=== PATIENT | female | born 1930 | race Caucasian/White ===

== ENCOUNTER 2018-11-16 19:21 | Inpatient (IN) ==
[2018-11-16 20:10] LABS: Basophils # (auto) 0.02 K/uL (0-0.2); Basophils % (auto) 0.3 %; Eosinophils # (auto) 0.06 K/uL (0-0.5); Eosinophils % (auto) 0.9 %; Hematocrit (blood only) 44.9 % (37-47); Hemoglobin 15.4 g/dL (12.0-16.0); Immature Granulocytes # (auto) 0.04 K/uL (0.00-0.02); Immature Granulocytes % (auto) 0.6 %; Lymphocytes # (auto) 0.93 K/uL (1.2-3.4); Lymphocytes % (auto) 14.6 %; Mean Corpuscular Hgb Conc 34.3 g/dL (32-36); Mean Corpuscular Volume 90.7 fL (80-100); Mean Platelet Volume 10.7 fL (7.4-10.4); Monocytes # (auto) 0.59 K/uL (0.11-0.59); Monocytes % (auto) 9.3 %; Neutrophils # (auto) 4.73 K/uL (1.4-6.5); Neutrophils % (auto) 74.3 %; Platelet Count 207 K/uL (130-400); RDW Coefficient of Variation 13.7 % (11.5-14.5); RDW Standard Deviation 45.1 fL (36.4-46.3); Red Blood Count 4.95 M/uL (4.2-5.4); White Blood Count 6.37 K/uL (4.8-10.8)
[2018-11-16] MEDS ORDERED: ACETAMINOPHEN 65 ML IV ONE ×2 (20:17→20:34)
[2018-11-16 20:23] LABS: INR 2.6 (0.9-1.1); Partial Thromboplastin Ratio 1.4; Partial Thromboplastin Time 38.5 Seconds (21.0-31.0); Prothrombin Time 24.7 Seconds (9.0-12.0)
[2018-11-16 20:30] LABS: Alanine Aminotransferase 27 U/L (12-78); Albumin Level 3.7 gm/dl (3.4-5.0); Aspartate Aminotransferase 22 U/L (15-37); BUN Creatinine Ratio 38.5 (10-20); Blood Urea Nitrogen 25 mg/dl (7-18); Calcium 9.2 mg/dl (8.5-10.1); Carbon Dioxide 27 mmol/L (21-32); Chloride 104 mmol/L (98-107); Est GFR (African American) 92.1; Est GFR (Non-African American) 79.4; Glucose 177 mg/dl (70-99); Potassium 4.2 mmol/L (3.5-5.1); Sodium 139 mmol/L (136-145)
[2018-11-16 20:35] LABS: Albumin Globulin Ratio 1.1 (0.9-2); Alkaline Phosphatase 60 U/L (45-117); Globulin 3.3 gm/dl (2.5-4.0); Troponin I 0.027 ng/ml (0-0.045)
--- NOTE | 2018-11-16 20:43 | Emergency Department Note ---
Entered by Vidya Augustin acting as a scribe for Matthew Ley MD History of Present Illness General Chief complaint: Fall Stated complaint: FALL, LEFT RIB PAIN Time Seen by Provider: 11/16/18 19:30 Source: patient and family Limitations: other (demensia) History of Present Illness Provider complaint: Fall Onset (ago): hour(s) (1.5) Location: head and abdomen (rib cage) Radiation: non-radiation Severity: moderate Pain Consistency: + constant Maximum Pain Intensity: 4 Current Pain Intensity: 4 Relieved By: + none Exacerbated By: + none Associated symptoms: + denies other symptoms (limited secondary to baseline demensia) and + other (+demensia, ); no headaches and no syncope Treatments prior to arrival: none The patient is a 88 year old female who presents to the Emergency Department after a fall on her staircase. Per the family, the patient recently moved into a new senior care where she fell on the first step of the stairs. The patient did not pass out during the fall but states that her ribs and back hurt. The patient denies having a headache. The patient has broken her back in the past and also has a history of dementia. Per the family, the patient's dementia has worsened since moving into the new senior care. The patient was started on Aricept about five weeks ago and she has showed a small amount of improvement since. The patient rates her pain as a 4 out of 10 in severity. The patient is a Coumadin and has history of high blood pressure, atrial fibrillation, a stent placement, and irritable bowels. Per the family, the patient also recently had a bladder infection. Home Medications Home Medications Medication Instructions Recorded Confirmed Type acetaminophen 325 mg PO Q6H PRN 11/16/18 11/16/18 History atorvastatin 10 mg PO DAILY 11/16/18 11/16/18 History calcium carbonate-vitamin D3 1 cap PO DAILY 11/16/18 11/16/18 History [Calcium 600 + D(3)] cefdinir 300 mg PO Q12H 11/16/18 11/16/18 History cholecalciferol (vitamin D3) 1,000 unit PO DAILY 11/16/18 11/16/18 History [Vitamin D3] cyanocobalamin (vitamin B-12) 500 mcg PO DAILY 11/16/18 11/16/18 History [Vitamin B-12] donepezil 5 mg PO DAILY 11/16/18 11/16/18 History glimepiride 1 mg PO DAILY 11/16/18 11/16/18 History levothyroxine 75 mcg PO DAILY 11/16/18 11/16/18 History melatonin 1 mg PO HS PRN 11/16/18 11/16/18 History peg 400-propylene glycol [Systane 2 drp OPHTHALMIC (EYE) BID PRN 11/16/18 11/16/18 History Ultra] polyethylene glycol 3350 17 g PO DIRECTED 11/16/18 11/16/18 History sotalol 80 mg PO DAILY 11/16/18 11/16/18 History warfarin 2 mg PO DIRECTED 11/16/18 11/16/18 History warfarin 4 mg PO DIRECTED 11/16/18 11/16/18 History Allergies Allergy/AdvReac Type Severity Reaction Status Date / Time bisacodyl Allergy Severe difficulty Verified 11/16/18 19:44 breathing, gi trazodone Allergy Severe anaphylaxis Verified 11/16/18 19:44 FREDI Inhibitors Allergy Unknown Unknown Verified 11/16/18 19:44 lisinopril Allergy Unknown Unknown Verified 11/16/18 19:44 nefazodone Allergy Unknown Unknown Verified 11/16/18 19:44 ranolazine Allergy Unknown unknown Verified 11/16/18 19:44 Sulfa (Sulfonamide Allergy Unknown stiff Verified 11/16/18 19:44 Antibiotics) neck/headache yellow dye Allergy Unknown unknown Verified 11/16/18 19:44 Past Med/Surg History Medical History Chest pain (Acute 05/31/14) History of - hypertension (Chronic 01/19/13) Rapid atrial fibrillation (Acute 05/31/14) Social History Feels Safe at Home: Yes Smoking Status: Never smoker Review of Systems See HPI for pertinent positives & negatives. and A total of 10 systems reviewed and were otherwise negative Physical Exam Vital Signs Vital Signs - 24 hr 11/16/18 19:24 11/16/18 21:04 11/16/18 22:41 Temperature 36.8 C Temperature Source Oral Sepsis Recent Fever Within 48 Hours No Sepsis Action Taken by Nursing No Action Required Pulse Rate 68 70 Pulse Rate [Right Finger] 64 70 Pulse Rhythm Regular Pulse Rhythm [Right Finger] Regular Regular Pulse Strength [Right Finger] Normal Normal Respiratory Rate 18 18 20 Respiratory Effort / Characteristics Non-Labored Non-Labored Spontaneous Non-Labored Spontaneous Respiratory Depth Normal Normal Normal Respiratory Pattern Regular Regular Blood Pressure 209/88 H Blood Pressure [Right Arm] 214/79 H 188/84 H Blood Pressure Mean 128 Blood Pressure Mean [Right Arm] 124 118 Blood Pressure Position [Right Arm] Lying Lying Pulse Oximetry 96 96 97 Oxygen Delivery Method Room Air Room Air Room Air 11/16/18 23:59 Temperature Temperature Source Sepsis Recent Fever Within 48 Hours Sepsis Action Taken by Nursing Pulse Rate 72 Pulse Rate [Right Finger] Pulse Rhythm Pulse Rhythm [Right Finger] Pulse Strength [Right Finger] Respiratory Rate 18 Respiratory Effort / Characteristics Respiratory Depth Respiratory Pattern Blood Pressure 165/73 H Blood Pressure [Right Arm] Blood Pressure Mean Blood Pressure Mean [Right Arm] Blood Pressure Position [Right Arm] Pulse Oximetry 98 Oxygen Delivery Method Room Air General: Non-ill appearing older female with baseline dementia in no acute distress. HEENT: Normal cephalic atraumatic. Pupils are equal round and reactive to light. Extraocular movements are intact. Oropharynx is pink with moist mucous membranes. No swelling of the mouth lips or tongue. Neck: Supple with a midline trachea. No meningeal signs or stiffness, no JVD or bruits. No Stridor. Chest: Tender palpation of chest. No external signs of trauma or crepatis. Clear to auscultation bilaterally. No wheezes or rhonchi. No increased work of breathing. Heart: regular rate and rhythm. Abdomen:Tender palpation of upper abdomen, nondistended without rebound guarding or rigidity. No external signs of trauma. Extremities: No cyanosis clubbing or edema. No calf tenderness or asymmetry Spine/Back. Non tender to palpation. No CVA tenderness Skin: Good turgor without rashes. Neurologic exam: Cranial nerves two through 12 are intact. Motor and sensation are intact and symmetrical throughout. Course 1932: The patient was seen in room B4B, a physical exam was performed. 2019: I checked up on the patient and decided to give him IV Tylenol. 2030: The patient received a small dose of Toradol. I also spoke with Ramirez Brown, [facility] Hospitalist, about the patient's case and he agreed to accept the patient for further evaluation. 2031: The patient was admitted for further evaluation. Consultations Consultation #1: I also spoke with Ramirez Brown, [facility] Hospitalist, about the patient's case and he agreed to accept the patient for further evaluation. Time: 20:30 Administered Medications Ioversol (Optiray 320 100ml) 94 ml IV ONCE PRN PRN Reason: Interaction Checking Stop: 11/20/18 20:54 Last Admin: 11/16/18 20:55 Dose: 94 ml Documented by: [id number] Lidocaine (Lidoderm 5%) 1 patch TD HS RADHA Stop: 12/16/18 22:04 Last Admin: 11/16/18 23:15 Dose: 1 patch Documented by: [id number] Sotalol HCl (Betapace) 40 mg PO BID RADHA Stop: 12/16/18 23:29 Last Admin: 11/16/18 23:49 Dose: 40 mg Documented by: [id number] Discontinued Medications Hydralazine HCl (Hydralazine Hcl) 5 mg IV NOW ONE Stop: 11/16/18 22:05 Last Admin: 11/16/18 23:32 Dose: Not Given Documented by: [id number] Acetaminophen (Ofirmev) 65 mls @ 200 mls/hr IV NOW ONE Stop: 11/16/18 20:36 Last Admin: 11/16/18 21:22 Dose: Not Given Documented by: [id number] Acetaminophen (Ofirmev) 65 mls @ 200 mls/hr IV NOW ONE Stop: 11/16/18 20:53 Last Infusion: 11/16/18 21:22 Dose: 0 mls/hr Documented by: [id number] Admin: 11/16/18 21:02 Dose: 200 mls/hr Documented by: [id number] Insulin Glargine (Lantus Solostar Pen) 5 units SQ NOW STA Stop: 11/16/18 23:31 Last Admin: 11/16/18 23:49 Dose: 5 units Documented by: [id number] Cosigned by: [id number] Ketorolac Tromethamine (Toradol) 15 mg IV NOW ONE Stop: 11/16/18 21:55 Last Admin: 11/16/18 21:56 Dose: 15 mg Documented by: [id number] Medical Decision Making Differential Diagnosis Differential Diagnosis: Rib fracture, PNX, pulmonary contusion, arrhythmia, anemia Medical Records Attestation: I reviewed the patient's medical records. Home Medications Current Medication List: was personally reviewed by me Laboratory Data Attestation: I reviewed the patient's lab results. Result diagrams: 11/16/18 19:59 11/16/18 19:59 Lab Results 11/16/18 11/16/18 11/16/18 Range/Units 19:59 19:59 19:59 WBC 6.37 (4.8-10.8) K/uL RBC 4.95 (4.2-5.4) M/uL Hgb 15.4 (12.0-16.0) g/dL Hct 44.9 (37-47) % MCV 90.7 (80-100) fL MCH 31.1 (25-34) pg MCHC 34.3 (32-36) g/dL RDW Std Deviation 45.1 (36.4-46.3) fL RDW Coeff of Neelima 13.7 (11.5-14.5) % Plt Count 207 (130-400) K/uL MPV 10.7 H (7.4-10.4) fL Immature Gran % (Auto) 0.6 % Neut % (Auto) 74.3 % Lymph % (Auto) 14.6 % Whitley % (Auto) 9.3 % Eos % (Auto) 0.9 % Baso % (Auto) 0.3 % Immature Gran # (Auto) 0.04 H (0.00-0.02) K/uL Neut # (Auto) 4.73 (1.4-6.5) K/uL Lymph # (Auto) 0.93 L (1.2-3.4) K/uL Whitley # (Auto) 0.59 (0.11-0.59) K/uL Eos # (Auto) 0.06 (0-0.5) K/uL Baso # (Auto) 0.02 (0-0.2) K/uL PT 24.7 H (9.0-12.0) Seconds INR 2.6 H (0.9-1.1) APTT 38.5 H (21.0-31.0) Seconds PTT Ratio 1.4 Sodium 139 (136-145) mmol/L Potassium 4.2 (3.5-5.1) mmol/L Chloride 104 (98-107) mmol/L Carbon Dioxide 27 (21-32) mmol/L Anion Gap 8.0 (3-11) BUN 25 H (7-18) mg/dl Creatinine 0.66 (0.6-1.2) mg/dl Est Cr Clr Drug Dosing Not Reportable Est GFR ( Amer) 92.1 Est GFR (Non-Af Amer) 79.4 BUN/Creatinine Ratio 38.5 H (10-20) Glucose 177 H (70-99) mg/dl Calcium 9.2 (8.5-10.1) mg/dl Total Bilirubin 1.0 (0.2-1) mg/dl AST 22 (15-37) U/L ALT 27 (12-78) U/L Alkaline Phosphatase 60 (45-117) U/L Troponin I 0.027 (0-0.045) ng/ml Total Protein 7.0 (6.4-8.2) gm/dl Albumin 3.7 (3.4-5.0) gm/dl Globulin 3.3 (2.5-4.0) gm/dl Albumin/Globulin Ratio 1.1 (0.9-2) Lipase 89 (73-393) U/L Imaging Data Attestation: I personally reviewed and interpreted this imaging study as follows: Radiologist's Impression: Radiology results as states below per my review and the radiologist's interpretation: CHEST CT WITH CONTRAST; CT ABDOMEN/PELVIS WITH IV contrast only CT DOSE: 640.17 mGy.cm HISTORY: Left-sided chest and abdominal trauma status post fall eval for trauma. Fall left sided pain TECHNIQUE: Multiaxial CT images of the chest, abdomen and pelvis were performed following the intravenous administration of contrast. A dose lowering technique was utilized adhering to the principles of ALARA. COMPARISON: Chest radiograph of same day. FINDINGS: CT CHEST: Cardiomegaly with extensive coronary arterial calcifications. No pericardial effusion. Fusiform dilation of the ascending thoracic aorta, 4.0 x 4.0 cm without dissection. Moderate mixed plaque formation with patency of the imaged great vessels. Main pulmonary artery is dilated, 3.1 cm transversely. No filling defects within the pulmonary arterial tree. No dominant thyroid nodule. No adenopathy by size criteria. Biopsy clips noted about the breasts. No pneumothorax or pleural effusion. Mild dependent subsegmental bibasilar atelectasis. No focal airspace consolidation typical for pneumonia or evidence of overt pulmonary edema. No suspicious pulmonary nodules or masses. Calcified granuloma of the superior segment right lower lobe. 4 mm solid nodule of the right upper lobe, image 80 series 6 is noted. Central airways appear to be patent. Soft tissues are within normal limits. Degenerative changes of the shoulders and spine. Acute mildly displaced anterolateral left third rib fracture with additional acute nondisplaced anterior left fourth and fifth rib fractures. Remote appearing 20% anterior endplate compression deformity at T7. CT ABDOMEN/PELVIS: No pneumatosis or pneumoperitoneum. Cholelithiasis with a large 2.[address] evidence of acute cholecystitis or choledocholithiasis. There is a mild degree of nonspecific biliary ductal dilation noted within the catarino phery of segment VIII, image 86 series 7. No associated capsular retraction or hepatic mass identified. Pancreas, spleen and adrenal glands appear unremarkable. Patency of the hepatic and portal veins. Kidneys are unremarkable with suggestion of bilateral renal cysts, most of which appear to be subc entimeter. Urinary bladder is unremarkable. Uterus appears to be surgically absent. Extensive calcification of the aorta without aneurysm. No adenopathy by CT size criteria. Small hiatal hernia. Moderate to extensive formed stool throughout the colon. Multiple stool-filled loops of small bowel are also noted. No bowel obstruction or bowel wall thickening identified. Terminal ileum is unremarkable. Appendix is not definitively seen. No free fluid. Soft tissues appear unremarkable. Demineralized appearance of the bones. Degenerative changes of the hips, pelvis and spine. Grade 1 anterolisthesis L4 on L5, likely degenerative. Superior endplate compression deformity of the L2 vertebral body is noted of approximately 20%. Additionally, there is approximately 30% anterior superior endplate compression deformity of L1 without retropulsion. Prior laminectomy changes at L3-S1. IMPRESSION: 1. Acute comminuted mildly displaced fracture of the anterolateral left third rib with additional subtle acute nondisplaced fractures of the anterolateral left fourth and fifth ribs. 2. Superior endplate compression deformities at the L1 and L2 vertebral bodies without retropulsion are age-indeterminate without comparison. Correlate with point tenderness to exclude acute injury. 3. No pneumothorax, pneumoperitoneum or evidence of acute solid organ injury. 4. Cholelithiasis without CT evidence of acute cholecystitis or choledocholithiasis. There is however mild nonspecific biliary ductal dilation noted within segment VIII of the liver. 5. Constipation. 6. Additional findings as above. Electronically signed by: Vin Murphy M.D. 11/16/2018 9:[address] WITH CONTRAST; CT ABDOMEN/PELVIS WITH IV contrast only CT DOSE: 640.17 mGy.cm HISTORY: Left-sided chest and abdominal trauma status post fall eval for trauma. Fall left sided pain TECHNIQUE: Multiaxial CT images of the chest, abdomen and pelvis were performed following the intravenous administration of contrast. A dose lowering technique was utilized adhering to the principles of ALARA. COMPARISON: Chest radiograph of same day. FINDINGS: CT CHEST: Cardiomegaly with extensive coronary arterial calcifications. No pericardial effusion. Fusiform dilation of the ascending thoracic aorta, 4.0 x 4.0 cm without dissection. Moderate mixed plaque formation with patency of the imaged great vessels. Main pulmonary artery is dilated, 3.1 cm transversely. No filling defects within the pulmonary arterial tree. No dominant thyroid nodule. No adenopathy by size criteria. Biopsy clips noted about the breasts. No pneumothorax or pleural effusion. Mild dependent subsegmental bibasilar atelectasis. No focal airspace consolidation typical for pneumonia or evidence of overt pulmonary edema. No suspicious pulmonary nodules or masses. Calcified granuloma of the superior segment right lower lobe. 4 mm solid nodule of the right upper lobe, image 80 series 6 is noted. Central airways appear to be golden nt. Soft tissues are within normal limits. Degenerative changes of the shoulders and spine. Acute mildly displaced anterolateral left third rib fracture with additional acute nondisplaced anterior left fourth and fifth rib fractures. Remote appearing 20% anterior endplate compression deformity at T7. CT ABDOMEN/PELVIS: No pneumatosis or pneumoperitoneum. Cholelithiasis with a large 2.6 cm gallst one. No CT evidence of acute cholecystitis or choledocholithiasis. There is a mild degree of nonspecific biliary ductal dilation noted within the periphery of segment VIII, image 86 series 7. No associated capsular retraction or hepatic mass identified. Pancreas, spleen and adrenal glands appear unremarkable. Patency of the hepatic and portal veins. Kidneys are unremarkable with suggestion of bilateral renal cysts, most of which appear to be subcentimeter. Urinary bladder is unremarkable. Uterus appears to be surgically absent. Extensive calcification of the aorta without aneurysm. No adenopathy by CT size criteria. Small hiatal hernia. Moderate to extensive formed stool throughout the colon. Multiple stool-filled loops of small bowel are also noted. No bowel obstruction or bowel wall thickening identified. Terminal ileum is unremarkable. Appendix is not definitively seen. No free fluid. Soft tissues appear unremarkable. Demineralized appearance of the bones. Degenerative changes of the hips, pelvis and spine. Grade 1 anterolisthesis L4 on L5, likely degenerative. Superior endplate compression deformity of the L2 vertebral body is noted of approximately 20%. Additionally, there is approximately 30% anterior superior endplate compression deformity of L1 without retropulsion. Prior laminectomy changes at L3-S1. IMPRESSION: 1. Acute comminuted mildly displaced fracture of the anterolateral left third rib with additional subtle acute nondisplaced fractures of the anterolateral left fourth and fifth ribs. 2. Superior endplate compression deformities at the L1 and L2 vertebral bodies without retropulsion are age-indeterminate without comparison. Correlate with point tenderness to exclude acute injury. 3. No pneumothorax, pneumoperitoneum or evidence of acute solid organ injury. 4. Cholelithiasis without CT evidence of acute cholecystitis or choledocholithiasis. There is however mild nonspecific biliary ductal dilation noted within segment VIII of the liver. 5. Constipation. 6. Additional findings as above. Electronically signed by: Vin Murphy M.D. 11/16/2018 9:27 PM Dictated: 11/16/182104 Transcribed: 11/16/182105 ECG Data Attestation: I personally reviewed and interpreted this ECG as follows: Indication: other (fall) Rate (beats per minute): 69 Rhythm: normal sinus Findings: + LAFB and + RBBB; no ST depression, no ST elevation and no acute ischemic change Comparison ECG Date: from (May 14, 2016) Change: no significant change Blood Pressure Blood Pressure Findings: Elevated blood pressure Blood Pressure Disposition: further management by hospitalist [facility] Narrative This patient comes in as described above. She suffered a fall. She is complaining of left anterior/lateral rib pain. She does have dementia so it somewhat difficult to pinpoint she is tender with palpation and movement however. She appears in no distress. She did not hit her head. She has baseline neurologic exam which is unchanged. She is moving all extremities. Her daughter is at the bedside. Because the patient is on Coumadin , I do worry more about traumatic injuries blood work was obtained as well as an EKG which did not show any acute ischemic changes. CAT scan of the chest abdomen and pelvis was also obtained. Her INR is in the mid 2 range. She has no significant right or metabolic abnormalities. CAT scan of her chest shows 3 rib fractures with a comminuted third rib fracture. No pneumothorax or pulmonary co ntusion. she seems to be in a lot of pain while she is here she did receive IV acetaminophen. She also received a small dose of IV Toradol. I do think she needs to be admitted/observe for pain management and also may ultimately need placement as her current living situation. she is in a personal care facility and they really can handle her with dementia. I did consult Dr. Yarbrough and she will be admitted for pain management and clinical social worker evaluation. Impression & Plan Fracture, ribs, Intractable pain, Dementia Discharge Plan Visit Data Chief Complaint: Fall Stated Complaint: FALL, LEFT RIB PAIN ED Provider: Matthew Ley Discharge Problem: Fracture, ribs, Intractable pain, Dementia Patient Disposition: Admitted As Inpatient Discharge Instructions Interventions: ED Discharge Assessment Last Done: 11/16/18 23:59 Forms Stand Alone Forms: My [facility] Prescriptions Prescriptions: No Action acetaminophen 325 mg Tablet 325 mg PO Q6H PRN (Reason: Pain) RF: 0 donepezil 5 mg tablet 5 mg PO DAILY RF: 0 polyethylene glycol 3350 17 gram Powder In Packet 17 g PO DIRECTED RF: 0 atorvastatin 10 mg Tablet 10 mg PO DAILY RF: 0 sotalol 80 mg Tablet 80 mg PO DAILY RF: 0 warfarin 4 mg Tablet 4 mg PO DIRECTED RF: 0 glimepiride 1 mg tablet 1 mg PO DAILY RF: 0 levothyroxine 75 mcg tablet 75 mcg PO DAILY RF: 0 cyanocobalamin (vitamin B-12) [Vitamin B-12] 500 mcg Tablet 500 mcg PO DAILY RF: 0 warfarin 2 mg Tablet 2 mg PO DIRECTED RF: 0 cefdinir 300 mg capsule 300 mg PO Q12H RF: 0 cholecalciferol (vitamin D3) [Vitamin D3] 1,000 unit Capsule 1,000 unit PO DAILY RF: 0 Systane Ultra 0.4-0.3 % Drops 2 drp OPHTHALMIC (EYE) BID PRN (Reason: Dry Eye(S)) RF: 0 melatonin 1 mg Tablet 1 mg PO HS PRN (Reason: Insomnia) RF: 0 Calcium 600 + D(3) 600 mg calcium- 200 unit Capsule 1 cap PO DAILY RF: 0 Referrals Referrals: Blanca Strauss DO [Primary Care Provider] - Discharge Problem: Fracture, ribs Qualifiers: Encounter type: initial encounter Rib fracture type: multiple ribs Fracture type: closed Laterality: unspecified laterality Qualified Code(s): S22.49XA - Multiple fractures of ribs, unspecified side, initial encounter for closed fracture Dementia Qualifiers: Dementia type: unspecified type Dementia behavioral disturbance: without behavioral disturbance Qualified Code(s): F03.90 - Unspecified dementia without behavioral disturbance The scribe's documentation has been prepared under my direction and personally reviewed by me in its entirety. I confirm that the note above accurately reflects all work, treatment, procedures, and medical decision making performed by me.
[2018-11-16] MEDS ORDERED: IOVERSOL 100ml IV PRN (20:55)
--- NOTE | 2018-11-16 21:30 | CT Scan Report ---
CHEST CT WITH CONTRAST; CT ABDOMEN/PELVIS WITH IV contrast only CT DOSE: 640.17 mGy.cm HISTORY: Left-sided chest and abdominal trauma status post fall eval for trauma. Fall left sided christian n TECHNIQUE: Multiaxial CT images of the chest, abdomen and pelvis were performed following the intrave nous administration of contrast. A dose lowering technique was utilized adhering to the principles o f ALARA. COMPARISON: Chest radiograph of same day. FINDINGS: CT CHEST: Cardiomegaly with extensive coronary arterial calcifications. No pericardial effusion. Fusiform dilat ion of the ascending thoracic aorta, 4.0 x 4.0 cm without dissection. Moderate mixed plaque formation with patency of the imaged great vessels. Main pulmonary artery is dilated, 3.1 cm transversely. No filling defects within the pulmonary arterial tree. No dominant thyroid nodule. No adenopathy by size criteria. Biopsy clips noted about the breasts. No pneumothorax or pleural effusion. Mild dependent subsegmental bibasilar atelectasis. No focal airspace consolidation typical for pneumonia or evidence of overt pulmonary edema. No suspicious pulmonary nodules or masses. Calcified granuloma of the supe rior segment right lower lobe. 4 mm solid nodule of the right upper lobe, image 80 series 6 is noted. Central airways appear to be patent. Soft tissues are within normal limits. Degenerative changes of the shoulders and spine. Acute mildly displaced anterolateral left third rib fracture with additional acute nondisplaced anterior left four th and fifth rib fractures. Remote appearing 20% anterior endplate compression deformity at T7. CT ABDOMEN/PELVIS: No pneumatosis or pneumoperitoneum. Cholelithiasis with a large 2.[address] evidence of a cute cholecystitis or choledocholithiasis. There is a mild degree of nonspecific biliary ductal dilat ion noted within the periphery of segment VIII, image 86 series 7. No associated capsular retraction or hepatic mass identified. Pancreas, spleen and adrenal glands appear unremarkable. Patency of the h epatic and portal veins. Kidneys are unremarkable with suggestion of bilateral renal cysts, most of w hich appear to be subcentimeter. Urinary bladder is unremarkable. Uterus appears to be surgically abs ent. Extensive calcification of the aorta without aneurysm. No adenopathy by CT size criteria. Small hiatal hernia. Moderate to extensive formed stool throughout the colon. Multiple stool-filled l oops of small bowel are also noted. No bowel obstruction or bowel wall thickening identified. Termina l ileum is unremarkable. Appendix is not definitively seen. No free fluid. Soft tissues appear unrema rkable. Demineralized appearance of the bones. Degenerative changes of the hips, pelvis and spine. Gr jose raul 1 anterolisthesis L4 on L5, likely degenerative. Superior endplate compression deformity of the L 2 vertebral body is noted of approximately 20%. Additionally, there is approximately 30% anterior sup erior endplate compression deformity of L1 without retropulsion. Prior laminectomy changes at L3-S1. IMPRESSION: 1. Acute comminuted mildly displaced fracture of the anterolateral left third rib with additional sub tle acute nondisplaced fractures of the anterolateral left fourth and fifth ribs. 2. Superior endplate compression deformities at the L1 and L2 vertebral bodies without retropulsion a re age-indeterminate without comparison. Correlate with point tenderness to exclude acute injury. 3. No pneumothorax, pneumoperitoneum or evidence of acute solid organ injury. 4. Cholelithiasis without CT evidence of acute cholecystitis or choledocholithiasis. There is however mild nonspecific biliary ductal dilation noted within segment VIII of the liver. 5. Constipation. 6. Additional findings as above. Electronically signed by: Vin Murphy M.D. 11/16/2018 9:27 PM
[2018-11-16] MEDS ORDERED: KETOROLAC TROMETHAMINE 15 MG/ML VIAL IV ONE (21:54)
[2018-11-16] MEDS ORDERED: HydrALAZINE HCL 20 MG/ML VIAL IV ONE (22:04)
[2018-11-16] MEDS ORDERED: LIDOCAINE 5% 1 PATCH TD SCH (22:05)
--- NOTE | 2018-11-16 23:15 | History & Physical Report ---
Date of Service November 16, 2018 Assessment & Plan (1) Fracture, ribs: Secondary to mechanical fall Hypertensive urgency secondary to discomfort chronic diastolic heart failure, patient euvolemic CAD status post stent PAF on Coumadin NSR on Sotalol INR therapeutic DM 2 on oral medications suboptimal control as of recent outpatient hemoglobin A1c of 8.12 October 2018 Complicated UTI ongoing oral cephalosporin Rx hypothyroidism, euthyroid as of recent outpatient TSH breast CIS right status post surgery Dementia OBS Medical telemetry for hypertensive urgency Analgesia, Lidoderm patch trial Continue Sotalol May need additional agent to control blood pressure given episodic bradycardia Basal insulin, ISS BG goal 1 40-1 80, carb count coverage PT OT eval Delirium precautions DVT prophylaxis. Coumadin INR goal between 2 and 3 Full code as per daughter/POA, Ms. Amber Vasques. (Contact #[phone].) History of Present Illness Chief Complaint: Fall, left rib pain Primary Care Provider: Blanca Strauss DO History obtained from patient, family, and records. History limited from patient secondary to dementia. Medical history significant for dementia, chronic diastolic heart failure, CAD status post stent, PAF on Coumadin, hypertension, hyperlipidemia, DM 2 on oral medications, hypothyroidism, breast cancer right status post surgery (radiation and hormonal therapy declined.) Recent confinement May 2014 for rapid A. fib. Patient moved to [facility] personal-residential 5 weeks ago (after being at [facility] for 5 years for patient to have greater mobility as per family). Today patient fell down landing on her left side as she was was going up a short flight of stairs. Patient complained of pleuritic left chest pain. Denies hemoptysis, shortness of breath symptoms. No head trauma. Medical History as above Oral cephalosporin course prescribed by PCP for UTI few days ago. Outpatient urine cultures showed E. coli, strep viridans. 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 Allergies Allergy/AdvReac Type Severity Reaction Status Date / Time bisacodyl Allergy Severe difficulty Verified 11/16/18 19:44 breathing, gi trazodone Allergy Severe anaphylaxis Verified 11/16/18 19:44 FREDI Inhibitors Allergy Unknown Unknown Verified 11/16/18 19:44 lisinopril Allergy Unknown Unknown Verified 11/16/18 19:44 nefazodone Allergy Unknown Unknown Verified 11/16/18 19:44 ranolazine Allergy Unknown unknown Verified 11/16/18 19:44 Sulfa (Sulfonamide Allergy Unknown stiff Verified 11/16/18 19:44 Antibiotics) neck/headache yellow dye Allergy Unknown unknown Verified 11/16/18 19:44 Home Medications Home Medications Medication Instructions Recorded Confirmed Type acetaminophen 325 mg PO Q6H PRN 11/16/18 11/16/18 History atorvastatin 10 mg PO DAILY 11/16/18 11/16/18 History calcium carbonate-vitamin D3 1 cap PO DAILY 11/16/18 11/16/18 History [Calcium 600 + D(3)] cefdinir 300 mg PO Q12H 11/16/18 11/16/18 History cholecalciferol (vitamin D3) 1,000 unit PO DAILY 11/16/18 11/16/18 History [Vitamin D3] cyanocobalamin (vitamin B-12) 500 mcg PO DAILY 11/16/18 11/16/18 History [Vitamin B-12] donepezil 5 mg PO DAILY 11/16/18 11/16/18 History glimepiride 1 mg PO DAILY 11/16/18 11/16/18 History levothyroxine 75 mcg PO DAILY 11/16/18 11/16/18 History melatonin 1 mg PO HS PRN 11/16/18 11/16/18 History peg 400-propylene glycol [Systane 2 drp OPHTHALMIC (EYE) BID PRN 11/16/18 11/16/18 History Ultra] polyethylene glycol 3350 17 g PO DIRECTED 11/16/18 11/16/18 History sotalol 80 mg PO DAILY 11/16/18 11/16/18 History warfarin 2 mg PO DIRECTED 11/16/18 11/16/18 History warfarin 4 mg PO DIRECTED 11/16/18 11/16/18 History Past Med/Surg History Medical History Chest pain (Acute 05/31/14) History of - hypertension (Chronic 01/19/13) Rapid atrial fibrillation (Acute 05/31/14) Social History Preferred Language: Sinhala Communication Ability: Effective Humanities Coordinator Required: No Beliefs That Will Affect Care: None Current Living Situation: Personal Care Facility Feels Safe at Home: Yes Safety Concerns: Feels Safe At This Time Smoking Status: Never smoker Hx Alcohol Use: No Hx Substance Use: No Review of Systems Review of Systems: Could not be reliably obtained Physical Exam Physical Exam: GENERAL: unomfortable, slightly hard of hearing, no respiratory distress SKIN: Normal color, warm HEENT: [place] palpebral conjunctivae, no ptosis, dry buccal mucosa NECK : Supple, no tenderness CHEST : Decreased breath sounds, anterior chest wall tenderness left HEART : RRR, systolic murmur ABDOMEN: Some distention, nontender EXTREMITIES : Minimal LE swelling, no LE tenderness, no other conspicuous deformities noted NEUROLOGIC : Coherent but demented, no facial asymmetry, hard of hearing, gait and stance not assessed Results & Data Vital Signs (Past 12 Hours) Vital Signs Temp Pulse Pulse Resp BP BP Pulse Ox 11/16/18 22:41 70 70 20 188/84 H 97 11/16/18 21:04 64 18 214/79 H 96 11/16/18 19:24 36.8 C 68 18 209/88 H 96 Laboratory Results Laboratory Results WBC 6.37 K/uL (4.8-10.8) 11/16/18 19:59 RBC 4.95 M/uL (4.2-5.4) 11/16/18 19:59 Hgb 15.4 g/dL (12.0-16.0) 11/16/18 19:59 Hct 44.9 % (37-47) 11/16/18 19:59 MCV 90.7 fL (80-100) 11/16/18 19:59 MCH 31.1 pg (25-34) 11/16/18 19:59 MCHC 34.3 g/dL (32-36) 11/16/18 19:59 RDW Std Deviation 45.1 fL (36.4-46.3) 11/16/18 19:59 RDW Coeff of Neelima 13.7 % (11.5-14.5) 11/16/18 19:59 Plt Count 207 K/uL (130-400) 11/16/18 19:59 MPV 10.7 fL (7.4-10.4) H 11/16/18 19:59 Immature Gran % (Auto) 0.6 % 11/16/18 19:59 Neut % (Auto) 74.3 % 11/16/18 19:59 Lymph % (Auto) 14.6 % 11/16/18 19:59 [place] % (Auto) 9.3 % 11/16/18 19:59 Eos % (Auto) 0.9 % 11/16/18 19:59 Baso % (Auto) 0.3 % 11/16/18 19:59 Immature Gran # (Auto) 0.04 K/uL (0.00-0.02) H 11/16/18 19:59 Neut # (Auto) 4.73 K/uL (1.4-6.5) 11/16/18 19:59 Lymph # (Auto) 0.93 K/uL (1.2-3.4) L 11/16/18 19:59 [place] # (Auto) 0.59 K/uL (0.11-0.59) 11/16/18 19:59 Eos # (Auto) 0.06 K/uL (0-0.5) 11/16/18 19:59 Baso # (Auto) 0.02 K/uL (0-0.2) 11/16/18 19:59 PT 24.7 Seconds (9.0-12.0) H 11/16/18 19:59 INR 2.6 (0.9-1.1) H 11/16/18 19:59 APTT 38.5 Seconds (21.0-31.0) H 11/16/18 19:59 PTT Ratio 1.4 11/16/18 19:59 Sodium 139 mmol/L (136-145) 11/16/18 19:59 Potassium 4.2 mmol/L (3.5-5.1) 11/16/18 19:59 Chloride 104 mmol/L (98-107) 11/16/18 19:59 Carbon Dioxide 27 mmol/L (21-32) 11/16/18 19:59 Anion Gap 8.0 (3-11) 11/16/18 19:59 BUN 25 mg/dl (7-18) H 11/16/18 19:59 Creatinine 0.66 mg/dl (0.6-1.2) 11/16/18 19:59 Est Cr Clr Drug Dosing Not Reportable 11/16/18 19:59 Est GFR ( Amer) 92.1 11/16/18 19:59 Est GFR (Non-Af Amer) 79.4 11/16/18 19:59 BUN/Creatinine Ratio 38.5 (10-20) H 11/16/18 19:59 Glucose 177 mg/dl (70-99) H 11/16/18 19:59 Calcium 9.2 mg/dl (8.5-10.1) 11/16/18 19:59 Total Bilirubin 1.0 mg/dl (0.2-1) 11/16/18 19:59 AST 22 U/L (15-37) 11/16/18 19:59 ALT 27 U/L (12-78) 11/16/18 19:59 Alkaline Phosphatase 60 U/L (45-117) 11/16/18 19:59 Troponin I 0.027 ng/ml (0-0.045) 11/16/18 19:59 Total Protein 7.0 gm/dl (6.4-8.2) 11/16/18 19:59 Albumin 3.7 gm/dl (3.4-5.0) 11/16/18 19:59 Globulin 3.3 gm/dl (2.5-4.0) 11/16/18 19:59 Albumin/Globulin Ratio 1.1 (0.9-2) 11/16/18 19:59 Lipase 89 U/L (73-393) 11/16/18 19:[address] chest abdomen pelvis: 1. Acute comminuted mildly displaced fracture of the anterolateral left third rib with additional subtle acute nondisplaced fractures of the anterolateral left fourth and fifth ribs. 2. Superior endplate compression deformities at the L1 and L2 vertebral bodies without retropulsion are age-indeterminate without comparison. Correlate with point tenderness to exclude acute injury. 3. No pneumothorax, pneumoperitoneum or evidence of acute solid organ injury. 4. Cholelithiasis without CT evidence of acute cholecystitis or choledocholithiasis. There is however mild nonspecific biliary ductal dilation noted within segment VIII of the liver. 5. Constipation. EKG as per my interpretation: Rate 70, NSR, LAD, LAFB, R BBB, no ischemia (1) Fracture, ribs Encounter type: initial encounter Fracture type: closed Laterality: unspecified laterality Rib fracture type: multiple ribs Qualified Code(s): S22.49XA - Multiple fractures of ribs, unspecified side, initial encounter for closed fracture
[2018-11-16] MEDS ORDERED: INSULIN GLARGINE SOLOSTAR 100 UNITS/ML 3 ML PEN SQ STA (23:30)
[2018-11-16] MEDS: SOTALOL HCL 80 MG TAB PO SCH (23:49)
[2018-11-17] MEDS ORDERED: GLUCAGON FOR INJ 1 MG VIAL SQ PRN (00:45)
[2018-11-17] MEDS ORDERED: DEXTROSE 50% 50 ML SYRINGE IV PRN (00:45)
[2018-11-17] MEDS ORDERED: SODIUM CHLORIDE 0.9% 1000ML 1,000 ML IV STA (00:45)
[2018-11-17] MEDS ORDERED: CARBOHYDRATES FOR HYPOGLYCEMIA PO PRN (00:45)
[2018-11-17] MEDS ORDERED: GLUCOSE 10 TABS/TUBE PO PRN (00:45)
[2018-11-17] MEDS ORDERED: GLUCOSE 40% GEL 15 GM TUBE PO PRN (00:45)
[2018-11-17] MEDS ORDERED: ACETAMINOPHEN 325 MG TAB PO PRN (00:45)
[2018-11-17] MEDS ORDERED: PROMETHAZINE HCL 12.5 MG in SODIUM CHLORIDE 0.9% 50 ML IV PRN (00:45)
[2018-11-17] MEDS: INSULIN ASPART 100 UNITS/ML 3 ML PEN SC SCH ×5 (01:18→20:17)
[2018-11-17 01:40] LABS: Magnesium 2.3 mg/dl (1.8-2.4)
[2018-11-17] MEDS ORDERED: ARTIFICIAL TEARS OP PRN (01:45)
[2018-11-17] MEDS: MoRPHine SULFATE 2 MG/ML CARP IV PRN ×3 (03:35→13:12)
[2018-11-17] MEDS ORDERED: AMLODIPINE BESYLATE 5 MG TAB PO SCH (04:45)
[2018-11-17] MEDS: TRAMADOL HCL 50 MG TABLET PO PRN ×2 (05:01→10:30)
[2018-11-17] MEDS: LEVOTHYROXINE SODIUM 75 MCG TABLET PO SCH (05:32)
[2018-11-17 06:58] LABS: Basophils # (auto) 0.02 K/uL (0-0.2); Basophils % (auto) 0.3 %; Eosinophils # (auto) 0.13 K/uL (0-0.5); Eosinophils % (auto) 2.2 %; Hematocrit (blood only) 43.2 % (37-47); Hemoglobin 14.7 g/dL (12.0-16.0); Immature Granulocytes # (auto) 0.01 K/uL (0.00-0.02); Immature Granulocytes % (auto) 0.2 %; Lymphocytes # (auto) 0.76 K/uL (1.2-3.4); Lymphocytes % (auto) 13.1 %; Mean Corpuscular Volume 90.8 fL (80-100); Monocytes # (auto) 0.55 K/uL (0.11-0.59); Monocytes % (auto) 9.5 %; Neutrophils # (auto) 4.33 K/uL (1.4-6.5); Neutrophils % (auto) 74.7 %; Platelet Count 180 K/uL (130-400); RDW Coefficient of Variation 13.5 % (11.5-14.5); Red Blood Count 4.76 M/uL (4.2-5.4)
[2018-11-17 07:09] LABS: Prothrombin Time 28.5 Seconds (9.0-12.0)
[2018-11-17 07:27] LABS: BUN Creatinine Ratio 29.5 (10-20); Calcium 8.6 mg/dl (8.5-10.1); Creatinine Clr Calc Pharmacy 58.5 ml/min; Est GFR (African American) 97.2; Est GFR (Non-African American) 83.8
[2018-11-17] MEDS: DONEPEZIL HCL 5 MG TAB PO SCH (07:59)
[2018-11-17] MEDS: CEFDINIR 300 MG CAP PO SCH ×2 (08:04→20:17)
[2018-11-17] MEDS: SOTALOL HCL 80 MG TAB PO SCH ×2 (08:04→20:16)
[2018-11-17] MEDS ORDERED: ATORVASTATIN 10 MG TAB PO SCH (09:00)
[2018-11-17] MEDS ORDERED: CYANOCOBALAMIN 500 MCG TABLET (VITAMIN B-12) PO SCH (09:00)
[2018-11-17] MEDS ORDERED: CHOLECALCIFEROL 1,000 UNITS TAB PO SCH (09:00)
[2018-11-17] MEDS ORDERED: CALCIUM 600MG + VIT D 400 IU TAB PO SCH (09:00)
[2018-11-17] MEDS ORDERED: PERFLUTREN LIPID MICROSPHERE (DEFINITY) IV ONE (09:29)
--- NOTE | 2018-11-17 19:15 | Hospitalist Progress Note ---
Date of Service November 17, 2018 Assessment & Plan (1) Fracture, ribs: Acute comminuted mildly displaced rib fractures on the left third rib with additional subtle nondisplaced fractures of the anterolateral left fourth and fifth ribs. Pain is uncontrolled. Imaging reveals no pneumothorax, pne umoperitoneum or evidence of solid organ injury. Continue supportive care by scheduling acetaminophen. If she is not too drowsy with this will schedule tramadol on top of this for now punctuate episodes of breakthrough pain with tramadol treatment or treatment with IV morphine. Will reduce morphine bolus dose by half to avoid lethargy. (2) E. coli UTI: Possible etiology of her mechanical fall at home. Cefdinir was started on 11/15 for 10-day course. Continue twice daily dosing. Monitor INR closely for fluctuations. (3) Dementia: Underlying dementia and it clear risk for delirium in the hospital with an evidence of infection and severe uncontrolled pain. Continue to reorient, early ambulation recommended and good day night cycles. (4) Encephalopathy: Multifactorial including morphine use, uncontrolled pain in setting of dementia with high risk of delirium. She has an active infection. Continue plan as above. (5) HTN (hypertension): Elevated blood pressure is likely secondary to pain. Amlodipine 2.5 was started on admission, however, blood pressure still uncontrolled. Suspect that with better pain control this will improve. For now will stop amlodipine and give hydralazine 3 times a day with hold parameters. (6) DVT prophylaxis: Warfarin Full code Disposition-pending clinical improvement Priti Murphy DO [facility] hospitalist Subjective 88-year-old female with recent move to personal custodial 5 weeks ago after being at [facility] for 5 years was admitted for mechanical fall on her left side and subsequent multiple rib fractures. On attempt to examine her today she is minimally responsive to questioning although she opens her eyes and mumbles unintelligible words. Within the last hour she received morphine and was altered as a result of this. At baseline she is reported to have dementia. Per nursing staff she had significant distress with any palpation of her left chest wall and in my examination today she is guarding this area. She cannot give a review of systems secondary to lethargy and confusion. Review of Systems 2 Review of Systems: Unobtainable due to cognitive status Physical Exam Physical Exam: CONSTITUTIONAL: WNWD, vitals as above, generally confused, in no acute distress unless left chest is palpated. EYES: normal conjunctivae, no scleral icterus ENT: MMM RESPIRATORY: clear to auscultation bilaterally, limited exam as patient is not cooperating with exam, no crackles, rales or wheezes, normal respiratory effort CARDIOVASCULAR: regular rate and rhythm, S1 and 2 heard without murmurs, gallops or rubs, no JVD, no peripheral edema CHEST: inspection of chest was normal, significant tenderness to palpation of left anterior chest wall. GASTROINTESTINAL: soft, nontender, nondistended MUSCULOSKELETAL: head is normocephalic and atraumatic, strength could not be assessed as patient is unable to follow instructions secondary to confusion. SKIN: warm and dry, no rashes NEUROLOGIC: No facial palsy, she is unable to follow instruction and is confused. PSYCHIATRIC: Eyes are closed and she is lethargic but opens eyes to voice. She localizes to pain. Results & Data Vital Signs (Past 12 Hours) Vital Signs Temp Pulse Pulse Resp BP BP Pulse Ox 11/17/18 19:01 36.8 C 64 16 176/77 H 96 11/17/18 15:35 36.3 C L 65 16 174/79 H 95 11/17/18 14:55 60 11/17/18 13:21 169/82 H 11/17/18 11:36 184/82 H 11/17/18 11:22 68 20 204/84 H 95 11/17/18 08:37 170/73 H Laboratory Results Short CBC 11/16/18 11/17/18 Range/Units 19:59 06:12 WBC 6.37 5.80 (4.8-10.8) K/uL Hgb 15.4 14.7 (12.0-16.0) g/dL Hct 44.9 43.2 (37-47) % Plt Count 207 180 (130-400) K/uL BMP 11/16/18 11/17/18 19:59 06:12 Sodium 139 142 Potassium 4.2 4.0 Chloride 104 108 H Carbon Dioxide 27 29 BUN 25 H 17 Creatinine 0.66 0.56 L Glucose 177 H 130 H Calcium 9.2 8.6 Cardiac Enzymes 11/16/18 Range/Units 19:59 Troponin I 0.027 (0-0.045) ng/ml Liver Function 07/06/19 Range/Units 19:59 Total Bilirubin 1.0 (0.2-1) mg/dl AST 22 (15-37) U/L ALT 27 (12-78) U/L Alkaline Phosphatase 60 (45-117) U/L Albumin 3.7 (3.4-5.0) gm/dl Medications Administered Current Inpatient Medications Acetaminophen (Tylenol) 650 mg PO Q6H PRN PRN Reason: Pain Stop: 12/17/18 00:44 Last Admin: 11/17/18 05:35 Dose: 650 mg Documented by: Amlodipine Besylate (Norvasc) 2.5 mg PO QAM RADHA Stop: 12/17/18 04:44 Last Admin: 11/17/18 05:31 Dose: 2.5 mg Documented by: Artificial Tears (Artificial Tears) 2 drops OP BID PRN PRN Reason: DRY EYESS Stop: 12/17/18 01:44 Atorvastatin Calcium (Lipitor) 10 mg PO DAILY RADHA Stop: 12/17/18 08:59 Last Admin: 11/17/18 07:59 Dose: 10 mg Documented by: Cefdinir (Omnicef Cap) 300 mg PO BID RADHA Stop: 11/27/18 08:59 Last Admin: 11/17/18 08:04 Dose: 300 mg Documented by: Cyanocobalamin (Vitamin B-12) 500 mcg PO DAILY RADHA Stop: 12/17/18 08:59 Last Admin: 11/17/18 07:59 Dose: 500 mcg Documented by: Dextrose (Dextrose 50%) 25 - 50 ml IV UD PRN; Protocol PRN Reason: Hypoglycemia Protocol Stop: 12/17/18 00:44 Donepezil HCl (Aricept) 5 mg PO DAILY RADHA Stop: 12/17/18 08:59 Last Admin: 11/17/18 07:59 Dose: 5 mg Documented by: Glucagon (Glucagen) 1 mg SQ UD PRN; Protocol PRN Reason: Hypoglycemia Protocol Stop: 12/17/18 00:44 Glucose (Glucose 40%) 15 - 30 gm PO UD PRN; Protocol PRN Reason: Hypoglycemia Protocol Stop: 12/17/18 00:44 Glucose (Dex4 Glucose) 4 - 8 tabs PO UD PRN; Protocol PRN Reason: Hypoglycemia Protocol Stop: 12/17/18 00:44 Sodium Chloride (Nss 1000ml) 1,000 mls @ 40 mls/hr IV .Q24H STA Stop: 11/18/18 00:44 Last Admin: 11/17/18 01:17 Dose: 40 mls/hr Documented by: Promethazine HCl 12.5 mg/ (Sodium Chloride) 50.5 mls @ 202 mls/hr IV Q6H PRN PRN Reason: Nausea And Vomiting Stop: 12/17/18 00:44 Insulin Aspart (Novolog Flexpen) 0 units SC ACHS [facility] Stop: 12/17/18 00:59 Last Admin: 11/17/18 16:59 Dose: Not Given Documented by: Insulin Glargine (Lantus Solostar Pen) 5 units SC HS [facility] Stop: 12/17/18 20:59 [facility]othyroxine [facility] ([facility]th[facility]) [facility] Stop: 12/17/18 06:29 Last Admin: 11/17/18 05:32 Dose: 75 mcg Documented by: Lidocaine (Lidoderm 5%) 1 patch TD [facility] Stop: 12/16/18 22:04 Last Admin: 11/16/18 23:15 Dose: 1 patch Documented by: Miscellaneous (Remove Lidoderm Patch) 1 ea N/A QAM [facility] Stop: 12/17/18 09:59 Last Admin: 11/17/18 10:30 Dose: 1 ea Documented by: Miscellaneous (Carbohydrates For Hypoglycemia) 15 - 30 gm PO UD PRN PRN Reason: Hypoglycemia Treatment Stop: 12/17/18 00:44 Morphine Sulfate (Morphine Sulfate) 2 mg IV Q4H PRN PRN Reason: Pain Stop: 12/01/18 00:44 Last Admin: 11/17/18 13:12 Dose: 2 mg Documented by: Multivitamins/Minerals (Caltrate Plus) 1 tab PO DAILY RADHA Stop: 12/17/18 08:59 Last Admin: 11/17/18 07:58 Dose: 1 tab Documented by: Sotalol HCl (Betapace) 40 mg PO BID [facility] Stop: 12/16/18 23:29 Last Admin: 11/17/18 08:04 Dose: Not Given Documented by: Tramadol HCl (Ultram) 25 mg PO Q4H PRN PRN Reason: Pain Stop: 12/17/18 00:44 Last Admin: 11/17/18 10:30 Dose: 25 mg Documented by: Vitamin D (Vitamin D3) 1,000 units PO DAILY RADHA Stop: 12/17/18 08:59 Last Admin: 11/17/18 07:59 Dose: 1,000 units Documented by: (1) Fracture, ribs Encounter type: initial encounter Fracture type: closed Laterality: unspecified laterality Rib fracture type: multiple ribs Qualified Code(s): S22.49XA - Multiple fractures of ribs, unspecified side, initial encounter for c losed fracture (2) Dementia Dementia behavioral disturbance: without behavioral disturbance Dementia type: unspecified type Qualified Code(s): F03.90 - Unspecified dementia without behavioral disturbance
[2018-11-17] MEDS ORDERED: MoRPHine SULFATE 2 MG/ML CARP IV PRN (19:18)
[2018-11-17] MEDS ORDERED: HydrALAZINE 10 MG TAB PO SCH (19:36)
[2018-11-17] MEDS ORDERED: WARFARIN SOD 2.5 MG TAB PO ONE (19:45)
[2018-11-17] MEDS: INSULIN GLARGINE SOLOSTAR 100 UNITS/ML 3 ML PEN SC SCH (20:17)
[2018-11-17] MEDS: ACETAMINOPHEN 1,000 MG/100 ML VIAL IV SCH (21:54)
[2018-11-18] MEDS ORDERED: HydrALAZINE 10 MG TAB PO SCH (05:30)
[2018-11-18] MEDS: ACETAMINOPHEN 1,000 MG/100 ML VIAL IV SCH ×3 (05:31→21:46)
[2018-11-18] MEDS: LEVOTHYROXINE SODIUM 75 MCG TABLET PO SCH (05:32)
[2018-11-18] MEDS: SOTALOL HCL 80 MG TAB PO SCH ×2 (05:35→20:10)
[2018-11-18 07:25] LABS: Hematocrit (blood only) 47.4 % (37-47); Mean Corpuscular Hgb Conc 33.8 g/dL (32-36); Mean Corpuscular Volume 91.2 fL (80-100); Mean Platelet Volume 10.7 fL (7.4-10.4); Platelet Count 188 K/uL (130-400); RDW Coefficient of Variation 13.6 % (11.5-14.5); RDW Standard Deviation 44.9 fL (36.4-46.3); White Blood Count 7.81 K/uL (4.8-10.8)
[2018-11-18 07:34] LABS: Prothrombin Time 28.2 Seconds (9.0-12.0)
[2018-11-18 07:42] LABS: BUN Creatinine Ratio 28.2 (10-20); Calcium 9.4 mg/dl (8.5-10.1); Creatinine Clr Calc Pharmacy 55.6 ml/min; Est GFR (African American) 95.5; Est GFR (Non-African American) 82.4; Potassium 4.1 mmol/L (3.5-5.1)
[2018-11-18] MEDS: DONEPEZIL HCL 5 MG TAB PO SCH (08:24)
[2018-11-18] MEDS: CEFDINIR 300 MG CAP PO SCH ×2 (08:24→20:12)
[2018-11-18] MEDS: INSULIN ASPART 100 UNITS/ML 3 ML PEN SC SCH ×4 (08:33→21:00)
[2018-11-18] MEDS ORDERED: HydrALAZINE HCL 20 MG/ML VIAL IV STA ×2 (08:58→12:38)
[2018-11-18] MEDS: KETOROLAC TROMETHAMINE 15 MG/ML VIAL IV SCH ×2 (10:19→16:08)
--- NOTE | 2018-11-18 12:43 | Hospitalist Progress Note ---
Date of Service November 18, 2018 Assessment & Plan (1) HTN (hypertension): Uncontrolled high blood pressure likely secondary to pain. More aggressive pain control measures including scheduled Tylenol appears to have been somewhat effective. Adding scheduled Toradol for the next 3 days and cont inue to punctuate breakthrough pain with tramadol p.o. With scheduled pain medicines, I am hoping she will improve from a blood pressure standpoint. In the meantime, IV hydralazine is being given to get her blood pressure into a more normal range. After 10 mg of IV hydralazine this morning and 10 mg p.o. given in the last 4 hours, her blood pressure is 183/74. Additional IV hydralazine is being given now. She has an allergy to FREDI inhibitors. We will plan to start low-dose HCTZ today and continue to titrate medications to achieve good blood pressure control while continuing to treat her pain as this will be a 4 to 6-week healing process requiring pain medication. While HCTZ is building up, would continue hydralazine. (2) Fracture, ribs: Acute comminuted mildly displaced rib fractures on the left third rib with additional subtle nondisplaced fractures of the anterolateral left fourth and fifth ribs. Pain is uncontrolled but she appears better than yesterday. Cont scheduled Tylenol 1000mg IV q8, add scheduled Toradol 15mg IV q8h x 3 days, punctuate breakthrough pain with Tramadol, or if severe morphine OK to use. Pt very sensitive to morphine, so would only give 1mg at a time. PT/OT as tolerated. Cont to get OOB to chair qshift and utilize incentive spirometry as tolerated, however, this will be difficult as she is unable to follow instruction at this time. (3) E. coli UTI: Possible etiology of her mechanical fall at home. Cefdinir was started on 11/15 for 10-day course. Continue twice daily dosing. Monitor INR closely for fluctuations. (4) Dementia: Underlying dementia and it clear risk for delirium in the hospital with an evidence of infection and severe uncontrolled pain. Continue to reorient, early ambulation recommended and good day night cycles. (5) Encephalopathy: Multifactorial including morphine use, uncontrolled pain in setting of dementia with high risk of delirium. She has an active infection. May have an element of hypertensive encephalopathy so aggressively trying to control pain and BP as above. (6) DVT prophylaxis: Warfarin Full code Disposition-pending clinical improvement Priti Murphy DO [facility] hospitalist Subjective 88-year-old female with recent UTI on antibiotics who had a mechanical fall at home and fractured multiple ribs. She is more alert today but is delirious and hallucinating. She states that people are trying to kill her. She first states it is her family then she points to the television and it was the people on TV. She is alert and oriented to person only. She does not know where she is or why she is here and she does not know the date. She is reporting pain in her chest but cannot tell me much more beyond this. She denies any other issues but is clearly altered. She has been able to ambulate to the bathroom and back with nursing this morning. She is tolerating some p.o. Review of Systems Review of Systems: Unobtainable due to cognitive status Physical Exam Physical Exam: CONSTITUTIONAL: WNWD, vitals as above, delirious, in no acute distress unless left chest is palpated. EYES: normal conjunctivae, no scleral icterus ENT: MMM RESPIRATORY: clear to auscultation bilaterally, limited exam as patient is not cooperating with exam, no crackles, rales or wheezes, normal respiratory effort CARDIOVASCULAR: regular rate and rhythm, S1 and 2 heard without murmurs, gallops or rubs, no peripheral edema CHEST: inspection of chest was normal, significant tenderness to palpation of left anterior chest wall. GASTROINTESTINAL: soft, generalized tenderness, nondistended MUSCULOSKELETAL: head is normocephalic and atraumatic, strength could not be assessed as patient is unable to follow instructions secondary to confusion, however, she is able to sit up on her own. SKIN: warm and dry NEUROLOGIC: No facial palsy, she is unable to follow instruction and is confused. PSYCHIATRIC: Alert in no acute distress. Delirious. Results & Data Vital Signs (Past 12 Hours) Vital Signs Temp Pulse Pulse Resp BP BP Pulse Ox 11/18/18 11:29 35.9 C L 73 20 171/75 H 95 11/18/18 07:13 36.9 C 56 L 19 206/70 H 92 11/18/18 06:34 57 L 197/81 H 11/18/18 04:16 36.4 C L 65 18 200/73 H 96 11/18/18 01:00 71 Laboratory Results Short CBC 11/18/18 Range/Units 07:02 WBC 7.81 (4.8-10.8) K/uL Hgb 16.0 (12.0-16.0) g/dL Hct 47.4 H (37-47) % Plt Count 188 (130-400) K/uL BMP 11/18/18 07:02 Sodium 139 Potassium 4.1 Chloride 104 Carbon Dioxide 29 BUN 17 Creatinine 0.59 L Glucose 111 H Calcium 9.4 Medications Administered Current Inpatient Medications Artificial Tears (Artificial Tears) 2 drops OP BID PRN PRN Reason: DRY EYESS Stop: 12/17/18 01:44 Atorvastatin Calcium (Lipitor) 10 mg PO DAILY [facility] Stop: 12/17/18 08:59 Last Admin: 11/17/18 07:59 Dose: 10 mg Documented by: Cefdinir (Omnicef Cap) 300 mg PO BID [facility] Stop: 11/27/18 08:59 Last Admin: 11/18/18 08:24 Dose: 300 mg Documented by: Cyanocobalamin (Vitamin B-12) 500 mcg PO DAILY [facility] Stop: 12/17/18 08:59 Last Admin: 11/17/18 07:59 Dose: 500 mcg Documented by: Dextrose (Dextrose 50%) 25 - 50 ml IV UD PRN; Protocol PRN Reason: Hypoglycemia Protocol Stop: 12/17/18 00:44 Donepezil HCl (Aricept) 5 mg PO DAILY [facility] Stop: 12/17/18 08:59 Last Admin: 11/18/18 08:24 Dose: 5 mg Documented by: Glucagon (Glucagen) 1 mg SQ UD PRN; Protocol PRN Reason: Hypoglycemia Protocol Stop: 12/17/18 00:44 Glucose (Glucose 40%) 15 - 30 gm PO UD PRN; Protocol PRN Reason: Hypoglycemia Protocol Stop: 12/17/18 00:44 Glucose (Dex4 Glucose) 4 - 8 tabs PO UD PRN; Protocol PRN Reason: Hypoglycemia Protocol Stop: 12/17/18 00:44 Hydralazine HCl (Apresoline) 10 mg PO TID [facility] Stop: 12/18/18 05:29 Last Admin: 11/18/18 05:35 Dose: 10 mg Documented by: Hydralazine HCl (Hydralazine Hcl) 10 mg IV NOW STA Stop: 11/18/18 12:39 Acetaminophen (Ofirmev) 1,000 mg in 100 mls @ 400 mls/hr IV Q8 [facility] Stop: 12/17/18 21:59 Last Infusion: 11/18/18 05:46 Dose: Infused Documented by: Insulin Aspart (Novolog Flexpen) 0 units SC ACHS [facility] Stop: 12/17/18 00:59 Last Admin: 11/18/18 08:33 Dose: Not Given Documented by: Insulin Glargine (Lantus Solostar Pen) 5 units SC HS [facility] Stop: 12/17/18 20:59 Last Admin: 11/17/18 20:17 Dose: 5 units Documented by: Ketorolac Tromethamine (Toradol) 15 mg IV Q8H [facility] Stop: 11/21/18 08:59 Last Admin: 11/18/18 10:19 Dose: 15 mg Documented by: Levothyroxine Sodium (Synthroid) 75 mcg PO DAILYBB [facility] Stop: 12/17/18 06:29 Last Admin: 11/18/18 05:32 Dose: 75 mcg Documented by: Miscellaneous (Carbohydrates For Hypoglycemia) 15 - 30 gm PO UD PRN PRN Reason: Hypoglycemia Treatment Stop: 12/17/18 00:44 Morphine Sulfate (Morphine Sulfate) 1 mg IV Q4H PRN PRN Reason: Pain Stop: 12/01/18 00:44 Multivitamins/Minerals (Caltrate Plus) 1 tab PO DAILY [facility] Stop: 12/17/18 08:59 Last Admin: 11/17/18 07:58 Dose: 1 tab Documented by: Sotalol HCl (Betapace) 40 mg PO BID [facility] Stop: 12/18/18 05:29 Last Admin: 11/18/18 05:35 Dose: 40 mg Documented by: Tramadol HCl (Ultram) 50 mg PO Q4H PRN PRN Reason: Pain Stop: 12/17/18 00:44 Vitamin D (Vitamin D3) 1,000 units PO DAILY [facility] Stop: 12/17/18 08:59 Last Admin: 11/17/18 07:59 Dose: 1,000 units Documented by: Warfarin Sodium (Coumadin) 2 mg PO MoWeFr@1600 [facility] Stop: 12/18/18 15:59 Warfarin Sodium (Coumadin) 4 mg PO SuTuThSa@1600 [facility] Stop: 12/19/18 15:59 (1) Fracture, ribs Encounter type: initial encounter Fracture type: closed Laterality: unspecified laterality Rib fracture type: multiple ribs Qualified Code(s): S22.49XA - Multiple fractures of ribs, unspecified side, initial encounter for closed fracture (2) Dementia Dementia behavioral disturbance: without behavioral disturbance Dementia type: unspecified type Qualified Code(s): F03.90 - Unspecified dementia without behavioral disturbance
[2018-11-18] MEDS ORDERED: hydroCHLOROthiazide 25 MG TAB PO STA (12:50)
[2018-11-18] MEDS: WARFARIN SOD 2 MG TAB PO SCH (16:08)
[2018-11-18] MEDS: TRAMADOL HCL 50 MG TABLET PO PRN (20:20)
[2018-11-18] MEDS: INSULIN GLARGINE SOLOSTAR 100 UNITS/ML 3 ML PEN SC SCH (21:06)
[2018-11-19] MEDS: ACETAMINOPHEN 1,000 MG/100 ML VIAL IV SCH ×3 (05:28→21:13)
[2018-11-19] MEDS: LEVOTHYROXINE SODIUM 75 MCG TABLET PO SCH (05:35)
[2018-11-19 07:53] LABS: Hematocrit (blood only) 47.2 % (37-47); Hemoglobin 16.4 g/dL (12.0-16.0); Mean Corpuscular Hgb Conc 34.7 g/dL (32-36); Mean Corpuscular Volume 90.4 fL (80-100); Mean Platelet Volume 10.8 fL (7.4-10.4); Platelet Count 199 K/uL (130-400); RDW Coefficient of Variation 13.8 % (11.5-14.5); RDW Standard Deviation 45.4 fL (36.4-46.3); Red Blood Count 5.22 M/uL (4.2-5.4); White Blood Count 7.45 K/uL (4.8-10.8)
[2018-11-19] MEDS: SOTALOL HCL 80 MG TAB PO SCH ×2 (08:00→20:11)
[2018-11-19] MEDS: DONEPEZIL HCL 5 MG TAB PO SCH (08:00)
[2018-11-19] MEDS: CEFDINIR 300 MG CAP PO SCH ×2 (08:01→20:10)
[2018-11-19 08:03] LABS: INR 2.9 (0.9-1.1); Prothrombin Time 27.6 Seconds (9.0-12.0)
[2018-11-19] MEDS: hydroCHLOROthiazide 25 MG TAB PO SCH (08:20)
[2018-11-19] MEDS: INSULIN ASPART 100 UNITS/ML 3 ML PEN SC SCH ×4 (08:22→21:03)
[2018-11-19 08:26] LABS: Calcium 9.3 mg/dl (8.5-10.1); Creatinine Clr Calc Pharmacy 54.6 ml/min; Magnesium 2.2 mg/dl (1.8-2.4); Potassium 3.6 mmol/L (3.5-5.1)
--- NOTE | 2018-11-19 10:41 | Hospitalist Progress Note ---
Date of Service November 19, 2018 Assessment & Plan (1) HTN (hypertension): Uncontrolled high blood pressure likely secondary to pain/agitation. Cont scheduled Tylenol punctuated by Tramadol PRN breakthrough pain. Cont HCTZ, started this admission. Cont PRN hydralazine. (2) Fracture, ribs: Acute comminuted mildly displaced rib fractures on the left third rib with additional subtle nondisplaced fractures of the anterolateral left fourth and fifth ribs. Pain is uncontrolled but she appears better than yesterday. Cont scheduled Tylenol. Pt very sensitive to morphine, so would only give 1mg at a time. PT/OT as tolerated. Cont to get OOB to chair qshift and utilize incentive spirometry as tolerated, however, this will be difficult as she is unable to follow instruction at this time. (3) E. coli UTI: Possible etiology of her mechanical fall at home. Cefdinir was started on 11/15 for 10-day course. Continue twice daily dosing. Monitor INR closely for fluctuations. (4) Dementia: Underlying dementia and it clear risk for delirium in the hospital with an evidence of infection and severe uncontrolled pain. Continue to reorient, early ambulation recommended and good day night cycles. (5) Encephalopathy: Multifactorial including morphine use, uncontrolled pain in setting of dementia with high risk of delirium. She has an active infection. May have an element of hypertensive encephalopathy so aggressively trying to control pain and BP as above. (6) DVT prophylaxis: Warfarin Full code Disposition-pending clinical improvement Priti Murphy DO [facility] hospitalist Subjective ( DEment[place] precludes accurate ROS. She is alert and concerned when I arrived, stating she thought she was going to [place], and paranoid that "they" weren't going to take her because they were trying to be harmful. BP was elevated >200 this am despite hydralazine 10mg PO. Hydralazine 10mg IV was given with good result and she was given her (new this admission), daily HCTZ. An additional dose of IV hyddralazine was needed later in the afternoon when her BP again went up >180 and she was noted to be agitated by nurse. Hydralazine 10 IV was given again with good result. Pain appears to have improved in her chest although this is difficult to appreciate as she has no insight into her disease process. Palpation evokes less response, she is not guarding the area, and she is moving around more freely. Review of Systems Review of Systems: Unobtainable due to mental health condition Physical Exam Physical Exam: CONSTITUTIONAL: WNWD, vitals as above, confused, in no acute distress. EYES: normal conjunctivae, no scleral icterus ENT: MMM RESPIRATORY: clear to auscultation bilaterally, limited exam as patient is not cooperating with exam, no crackles, rales or wheezes, normal respiratory effort CARDIOVASCULAR: regular rate and rhythm, S1 and 2 heard without murmurs, gallops or rubs, no peripheral edema CHEST: inspection of chest was normal, significant tenderness to palpation of left anterior chest wall. GASTROINTESTINAL: soft, generalized tenderness, nondistended MUSCULOSKELETAL: head is normocephalic and atraumatic, strength could not be assessed as patient is unable to follow instructions secondary to confusion, however, she is able to sit up on her own. SKIN: warm and dry NEUROLOGIC: No facial palsy, she is unable to follow instruction and is confused. PSYCHIATRIC: Alert in no acute distress. Delirious. Results & Data Vital Signs (Past 12 Hours) Vital Signs Temp Pulse Pulse Resp BP BP Pulse Ox 11/19/18 07:22 36.4 C L 75 18 235/83 H 95 11/19/18 03:47 57 L 11/18/18 22:53 36.6 C 59 L 19 137/67 95 Laboratory Results Short CBC 11/19/18 Range/Units 07:24 WBC 7.45 (4.8-10.8) K/uL Hgb 16.4 H (12.0-16.0) g/dL Hct 47.2 H (37-47) % Plt Count 199 (130-400) K/uL BMP 11/19/18 07:24 Sodium 139 Potassium 3.6 Chloride 104 Carbon Dioxide 27 BUN 26 H D Creatinine 0.60 Glucose 109 H Calcium 9.3 Medications Administered Current Inpatient Medications Artificial Tears (Artificial Tears) 2 drops OP BID PRN PRN Reason: DRY EYESS Stop: 12/17/18 01:44 Atorvastatin Calcium (Lipitor) 10 mg PO DAILY [facility] Stop: 12/17/18 08:59 Last Admin: 11/17/18 07:59 Dose: 10 mg Documented by: Cefdinir (Omnicef Cap) 300 mg PO BID [facility] Stop: 11/27/18 08:59 Last Admin: 11/19/18 08:01 Dose: 300 mg Documented by: Cyanocobalamin (Vitamin B-12) 500 mcg PO DAILY [facility] Stop: 12/17/18 08:59 Last Admin: 11/17/18 07:59 Dose: 500 mcg Documented by: Dextrose (Dextrose 50%) 25 - 50 ml IV UD PRN; Protocol PRN Reason: Hypoglycemia Protocol Stop: 12/17/18 00:44 Donepezil HCl (Aricept) 5 mg PO DAILY [facility] Stop: 12/17/18 08:59 Last Admin: 11/19/18 08:00 Dose: 5 mg Documented by: Glucagon (Glucagen) 1 mg SQ UD PRN; Protocol PRN Reason: Hypoglycemia Protocol Stop: 12/17/18 00:44 Glucose (Glucose 40%) 15 - 30 gm PO UD PRN; Protocol PRN Reason: Hypoglycemia Protocol Stop: 12/17/18 00:44 Glucose (Dex4 Glucose) 4 - 8 tabs PO UD PRN; Protocol PRN Reason: Hypoglycemia Protocol Stop: 12/17/18 00:44 Hydrochlorothiazide (Hctz) 12.5 mg PO QAM [facility] Stop: 12/19/18 08:59 Last Admin: 11/19/18 08:20 Dose: 12.5 mg Documented by: Acetaminophen (Ofirmev) 1,000 mg in 100 mls @ 400 mls/hr IV Q8 [facility] Stop: 12/17/18 21:59 Last Infusion: 11/19/18 05:51 Dose: Infused Documented by: Insulin Aspart (Novolog Flexpen) 0 units SC ACHS [facility] Stop: 12/17/18 00:59 Last Admin: 11/19/18 08:22 Dose: Not Given Documented by: Insulin Glargine (Lantus Solostar Pen) 5 units SC HS [facility] Stop: 12/17/18 20:59 Last Admin: 11/18/18 21:06 Dose: 5 units Documented by: Levothyroxine Sodium (Synthroid) 75 mcg PO DAILYBB [facility] Stop: 12/17/18 06:29 Last Admin: 11/19/18 05:35 Dose: 75 mcg Documented by: Miscellaneous (Carbohydrates For Hypoglycemia) 15 - 30 gm PO UD PRN PRN Reason: Hypoglycemia Treatment Stop: 12/17/18 00:44 Morphine Sulfate (Morphine Sulfate) 1 mg IV Q4H PRN PRN Reason: Pain Stop: 12/01/18 00:44 Multivitamins/Minerals (Caltrate Plus) 1 tab PO DAILY [facility] Stop: 12/17/18 08:59 Last Admin: 11/17/18 07:58 Dose: 1 tab Documented by: Sotalol HCl (Betapace) 40 mg PO BID [facility] Stop: 12/18/18 05:29 Last Admin: 11/19/18 08:00 Dose: 40 mg Documented by: Tramadol HCl (Ultram) 50 mg PO Q4H PRN PRN Reason: Pain Stop: 12/17/18 00:44 Last Admin: 11/18/18 20:20 Dose: 50 mg Documented by: Vitamin D (Vitamin D3) 1,000 units PO DAILY [facility] Stop: 12/17/18 08:59 Last Admin: 11/17/18 07:59 Dose: 1,000 units Documented by: Warfarin Sodium (Coumadin) 2 mg PO MoWeFr@1600 [facility] Stop: 12/18/18 15:59 Last Admin: 11/18/18 16:08 Dose: 2 mg Documented by: Warfarin Sodium (Coumadin) 4 mg PO SuTuThSa@1600 [facility] Stop: 12/19/18 15:59 (1) Fracture, ribs Encounter type: initial encounter Fracture type: closed Laterality: unspecified laterality Rib fracture type: multiple ribs Qualified Code(s): S22.49XA - Multiple fractures of ribs, unspecified side, initial encounter for closed fracture (2) Dementia Dementia behavioral disturbance: without behavioral disturbance Dementia type: unspecified type Qualified Code(s): F03.90 - Unspecified dementia without behavioral disturbance
[2018-11-19] MEDS ORDERED: HydrALAZINE HCL 20 MG/ML VIAL IV PRN (10:42)
[2018-11-19] MEDS ORDERED: WARFARIN SOD 4 MG TAB PO SCH (16:00)
[2018-11-19] MEDS: TRAMADOL HCL 50 MG TABLET PO PRN ×2 (17:31→23:39)
[2018-11-19] MEDS: INSULIN GLARGINE SOLOSTAR 100 UNITS/ML 3 ML PEN SC SCH (21:13)
[2018-11-20] MEDS: ACETAMINOPHEN 1,000 MG/100 ML VIAL IV SCH ×3 (05:44→22:05)
[2018-11-20] MEDS: LEVOTHYROXINE SODIUM 75 MCG TABLET PO SCH (05:45)
[2018-11-20 06:50] LABS: INR 2.3 (0.9-1.1); Prothrombin Time 21.9 Seconds (9.0-12.0)
[2018-11-20] MEDS: hydroCHLOROthiazide 25 MG TAB PO SCH (08:13)
[2018-11-20] MEDS: CEFDINIR 300 MG CAP PO SCH ×2 (08:13→22:01)
[2018-11-20] MEDS: SOTALOL HCL 80 MG TAB PO SCH ×2 (08:13→22:01)
[2018-11-20] MEDS: DONEPEZIL HCL 5 MG TAB PO SCH (08:13)
[2018-11-20] MEDS: INSULIN ASPART 100 UNITS/ML 3 ML PEN SC SCH ×4 (08:39→21:59)
[2018-11-20] MEDS: WARFARIN SOD 2 MG TAB PO SCH (15:54)
--- NOTE | 2018-11-20 17:09 | Hospitalist Progress Note ---
Date of Service November 20, 2018 Assessment & Plan (1) HTN (hypertension): Uncontrolled high blood pressure likely secondary to pain/agitation. Cont scheduled Tylenol punctuated by Tramadol PRN breakthrough pain. Cont HCTZ, started this admission. Cont PRN hydralazine. We will add amlodipine for better blood pressure control (2) Fracture, ribs: Acute comminuted mildly displaced rib fractures on the left third rib with additional subtle nondisplaced fractures of the anterolateral left fourth and fifth ribs. Pain is controlled Cont scheduled Tylenol. Pt very sensitive to morphine, so would only give 1mg at a time. PT/OT as tolerated. (3) E. coli UTI: Possible etiology of her mechanical fall at home. Cefdinir was started on 11/15 for 10-day course. Continue twice daily dosing. (4) Dementia: Underlying dementia and it clear risk for delirium in the hospital with an evidence of infection and severe uncontrolled pain. Continue to reorient, early ambulation recommended and good day night cycles. (5) Encephalopathy: Multifactorial including morphine use, uncontrolled pain in setting of dementia with high risk of delirium. She has an active infection. May have an element of hypertensive encephalopathy so aggressively trying to control pain and BP as above. (6) DVT prophylaxis: Warfarin Full code Disposition-pending clinical improvement Subjective 11/20 Patient was seen and examined in medical floor Medical history significant for dementia, chronic diastolic heart failure, CAD status post stent, PAF on Coumadin, hypertension, hyperlipidemia, DM 2 on oral medications, hypothyroidism, breast cancer right status post surgery (radiation and hormonal therapy declined. She denies any symptoms today Her blood pressure was noted to be high Review of Systems Review of Systems: All systems reviewed and unremarkable except as noted below Constitutional: + weakness Respiratory: no cough and no dyspnea Cardiovascular: no chest pain Physical Exam Physical Exam: No apparent distress at rest Constitutional: + ill appearing; no acute distress Eyes: PERRL, conjunctivae normal, anicteric sclerae ENMT: external ear and nose normal, oropharynx normal Neck: trachea midline, no thyromegaly Respiratory: normal respiratory effort; no respiratory distress Auscultation: lungs clear to auscultation bilaterally Cardiovascular: Rate/Rhythm: regular rate and regular rhythm Heart Sounds: no murmur Gastrointestinal (Abdomen): Inspection/Auscultation: abdomen normal to inspection and normal bowel sounds Percussion/Palpation: abdomen soft Neurologic: Pleasantly confused Lymphatic: no cervical or axillary lymphadenopathy Results & Data Vital Signs (Past 12 Hours) Vital Signs Temp Pulse Pulse Resp BP BP Pulse Ox 11/20/18 15:09 36.4 C L 59 L 18 177/83 H 96 11/20/18 12:00 36.9 C 66 18 156/77 H 95 11/20/18 07:51 61 11/20/18 06:58 36.7 C 61 20 155/73 H 94 Medications Administered Current Inpatient Medications Amlodipine Besylate (Norvasc) 2.5 mg PO NOW ONE Stop: 11/20/18 17:16 Amlodipine Besylate (Norvasc) 5 mg PO QAM [facility] Stop: 12/21/18 08:59 Artificial Tears (Artificial Tears) 2 drops OP BID PRN PRN Reason: DRY EYESS Stop: 12/17/18 01:44 Atorvastatin Calcium (Lipitor) 10 mg PO DAILY [facility] Stop: 12/17/18 08:59 Last Admin: 11/17/18 07:59 Dose: 10 mg Documented by: Cefdinir (Omnicef Cap) 300 mg PO BID [facility] Stop: 11/27/18 08:59 Last Admin: 11/20/18 08:13 Dose: 300 mg Documented by: Cyanocobalamin (Vitamin B-12) 500 mcg PO DAILY [facility] Stop: 12/17/18 08:59 Last Admin: 11/17/18 07:59 Dose: 500 mcg Documented by: Dextrose (Dextrose 50%) 25 - 50 ml IV UD PRN; Protocol PRN Reason: Hypoglycemia Protocol Stop: 12/17/18 00:44 Donepezil HCl (Aricept) 5 mg PO DAILY [facility] Stop: 12/17/18 08:59 Last Admin: 11/20/18 08:13 Dose: 5 mg Documented by: Glucagon (Glucagen) 1 mg SQ UD PRN; Protocol PRN Reason: Hypoglycemia Protocol Stop: 12/17/18 00:44 Glucose (Glucose 40%) 15 - 30 gm PO UD PRN; Protocol PRN Reason: Hypoglycemia Protocol Stop: 12/17/18 00:44 Glucose (Dex4 Glucose) 4 - 8 tabs PO UD PRN; Protocol PRN Reason: Hypoglycemia Protocol Stop: 12/17/18 00:44 Hydralazine HCl (Hydralazine Hcl) 10 mg IV Q6H PRN PRN Reason: SBP>180 Stop: 12/19/18 10:44 Last Admin: 11/19/18 15:49 Dose: 10 mg Documented by: Hydrochlorothiazide (Hctz) 12.5 mg PO QAM [facility] Stop: 12/19/18 08:59 Last Admin: 11/20/18 08:13 Dose: 12.5 mg Documented by: Acetaminophen (Ofirmev) 1,000 mg in 100 mls @ 400 mls/hr IV Q8 [facility] Stop: 12/17/18 21:59 Last Infusion: 11/20/18 13:36 Dose: Infused Documented by: Insulin Aspart (Novolog Flexpen) 0 units SC ACHS [facility] Stop: 12/17/18 00:59 Last Admin: 11/20/18 12:52 Dose: Not Given Documented by: Insulin Glargine (Lantus Solostar Pen) 5 units SC HS [facility] Stop: 12/17/18 20:59 Last Admin: 11/19/18 21:13 Dose: 5 units Documented by: Levothyroxine Sodium (Synthroid) 75 mcg PO DAILYBB [facility] Stop: 12/17/18 06:29 Last Admin: 11/20/18 05:45 Dose: 75 mcg Documented by: Miscellaneous (Carbohydrates For Hypoglycemia) 15 - 30 gm PO UD PRN PRN Reason: Hypoglycemia Treatment Stop: 12/17/18 00:44 Morphine Sulfate (Morphine Sulfate) 1 mg IV Q4H PRN PRN Reason: Pain Stop: 12/01/18 00:44 Last Admin: 11/20/18 02:58 Dose: 1 mg Documented by: Multivitamins/Minerals (Caltrate Plus) 1 tab PO DAILY [facility] Stop: 12/17/18 08:59 Last Admin: 11/17/18 07:58 Dose: 1 tab Documented by: Sotalol HCl (Betapace) 40 mg PO BID [facility] Stop: 12/18/18 05:29 Last Admin: 11/20/18 08:13 Dose: 40 mg Documented by: Tramadol HCl (Ultram) 50 mg PO Q4H PRN PRN Reason: Pain Stop: 12/17/18 00:44 Last Admin: 11/19/18 23:39 Dose: 50 mg Documented by: Vitamin D (Vitamin D3) 1,000 units PO DAILY [facility] Stop: 12/17/18 08:59 Last Admin: 11/17/18 07:59 Dose: 1,000 units Documented by: Warfarin Sodium (Coumadin) 2 mg PO MoWeFr@1600 [facility] Stop: 12/18/18 15:59 Last Admin: 11/20/18 15:54 Dose: 2 mg Documented by: Warfarin Sodium (Coumadin) 4 mg PO SuTuThSa@1600 [facility] Stop: 12/19/18 15:59 Last Admin: 11/19/18 15:44 Dose: Not Given Documented by: (1) Fracture, ribs Encounter type: initial encounter Fracture type: closed Laterality: unspecified laterality Rib fracture type: multiple ribs Qualified Code(s): S22.49XA - Multiple fractures of ribs, unspecified side, initial encounter for closed fracture (2) Dementia Dementia behavioral disturbance: without behavioral disturbance Dementia type: unspecified type Qualified Code(s): F03.90 - Unspecified dementia without behavioral disturbance
[2018-11-20] MEDS ORDERED: AMLODIPINE BESYLATE 5 MG TAB PO ONE (17:15)
[2018-11-20] MEDS ORDERED: GLYCERIN ADULT 12 EA SUPP PR ONE (19:00)
[2018-11-20] MEDS: PSYLLIUM 58.6% POWDER PACKET PO SCH (19:54)
[2018-11-20] MEDS: INSULIN GLARGINE SOLOSTAR 100 UNITS/ML 3 ML PEN SC SCH (22:02)
[2018-11-21] MEDS: ACETAMINOPHEN 1,000 MG/100 ML VIAL IV SCH (05:43)
[2018-11-21] MEDS: LEVOTHYROXINE SODIUM 75 MCG TABLET PO SCH (05:43)
[2018-11-21 06:27] LABS: INR 1.7 (0.9-1.1); Prothrombin Time 16.5 Seconds (9.0-12.0)
[2018-11-21] MEDS: TRAMADOL HCL 50 MG TABLET PO PRN (07:47)
[2018-11-21] MEDS: SOTALOL HCL 80 MG TAB PO SCH (07:47)
[2018-11-21] MEDS: CEFDINIR 300 MG CAP PO SCH (07:47)
[2018-11-21] MEDS: PSYLLIUM 58.6% POWDER PACKET PO SCH (07:48)
[2018-11-21] MEDS: hydroCHLOROthiazide 25 MG TAB PO SCH (07:48)
[2018-11-21] MEDS: DONEPEZIL HCL 5 MG TAB PO SCH (07:48)
[2018-11-21] MEDS: INSULIN ASPART 100 UNITS/ML 3 ML PEN SC SCH ×2 (08:08→12:04)
[2018-11-21] MEDS ORDERED: AMLODIPINE BESYLATE 5 MG TAB PO SCH (09:00)
--- NOTE | 2018-11-21 13:19 | Hospitalist Progress Note ---
Date of Service November 21, 2018 Assessment & Plan (1) HTN (hypertension): Uncontrolled high blood pressure likely secondary to pain/agitation. Cont scheduled Tylenol punctuated by Tramadol PRN breakthrough pain. Cont HCTZ, started this admission. Cont PRN hydralazine. We will add amlodipine for better blood pressure control Blood pressure seems to be improving (2) Fracture, ribs: Acute comminuted mildly displaced rib fractures on the left third rib with additional subtle nondisplaced fractures of the anterolateral left fourth and fifth ribs. Pain is controlled Cont scheduled Tylenol. Pt very sensitive to morphine, so would only give 1mg at a time. PT/OT as tolerated.-Doing much better with physical therapy She will be transferred to [facility] this afternoon (3) E. coli UTI: Possible etiology of her mechanical fall at home. Cefdinir was started on 11/15 for 10-day course. Continue twice daily dosing. (4) Dementia: Underlying dementia and it clear risk for delirium in the hospital with an evidence of infection and severe uncontrolled pain. Continue to reorient, early ambulation recommended and good day night cycles. No acute delirium (5) Encephalopathy: Multifactorial including morphine use, uncontrolled pain in setting of dementia with high risk of delirium. She has an active infection. May have an element of hypertensive encephalopathy so aggressively trying to control pain and BP as above She is back to her baseline without any acute confusion. (6) DVT prophylaxis: Warfarin Full code Disposition-she will be discharged to [facility] this afternoon Subjective 11/20 Patient was seen and examined in medical floor Medical history significant for dementia, chronic diastolic heart failure, CAD status post stent, PAF on Coumadin, hypertension, hyperlipidemia, DM 2 on oral medications, hypothyroidism, breast cancer right status post surgery (radiation and hormonal therapy declined. She denies any symptoms today Her blood pressure was noted to be high 11/21 Patient is seen and examined in medical floor She has been stable and pleasantly confused with history of dementia Denies any symptoms Her blood pressure is reasonably controlled Review of Systems Review of Systems: All systems reviewed and unremarkable except as noted below Constitutional: + weakness Neurologic: Has dementia pleasantly confused, but no acute confusion Physical Exam Physical Exam: No apparent distress at rest Constitutional: no acute distress Eyes: PERRL, conjunctivae normal, anicteric sclerae ENMT: external ear and nose normal, oropharynx normal Neck: trachea midline, no thyromegaly Respiratory: normal respiratory effort; no respiratory distress Auscultation: lungs clear to auscultation bilaterally Cardiovascular: Rate/Rhythm: regular rate and regular rhythm Heart Sounds: no murmur Gastrointestinal (Abdomen): Inspection/Auscultation: abdomen normal to inspection and normal bowel sounds Percussion/Palpation: abdomen soft Musculoskeletal: No acute arthritis Neurologic: Dementia seems to be stable. She remains pleasantly confused. No focal neuro deficit Lymphatic: no cervical or axillary lymphadenopathy Results & Data Vital Signs (Past 12 Hours) Vital Signs Temp Pulse Resp BP BP Pulse Ox 11/21/18 13:09 36.8 C 68 18 122/74 158/88 H 94 11/21/18 12:20 36.8 C 68 18 122/74 94 11/21/18 07:07 36.6 C 61 20 152/78 H 95 11/21/18 03:24 36.5 C 61 20 172/83 H 96 Medications Administered Current Inpatient Medications Amlodipine Besylate (Norvasc) 5 mg PO QAM [facility] Stop: 12/21/18 08:59 Last Admin: 11/21/18 07:48 Dose: 5 mg Documented by: Artificial Tears (Artificial Tears) 2 drops OP BID PRN PRN Reason: DRY EYESS Stop: 12/17/18 01:44 Atorvastatin Calcium (Lipitor) 10 mg PO DAILY [facility] Stop: 12/17/18 08:59 Last Admin: 11/17/18 07:59 Dose: 10 mg Documented by: Cefdinir (Omnicef Cap) 300 mg PO BID RAD[facility] Stop: 11/27/18 08:59 Last Admin: 11/21/18 07:47 Dose: 300 mg Documented by: Cyanocobalamin (Vitamin B-12) 500 mcg PO DAILY RADHA Stop: 12/17/18 08:59 Last Admin: 11/17/18 07:59 Dose: 500 mcg Documented by: Dextrose (Dextrose 50%) 25 - 50 ml IV UD PRN; Protocol PRN Reason: Hypoglycemia Protocol Stop: 12/17/18 00:44 Donepezil HCl (Aricept) 5 mg PO DAILY RADHA Stop: 12/17/18 08:59 Last Admin: 11/21/18 07:48 Dose: 5 mg Documented by: Glucagon (Glucagen) 1 mg SQ UD PRN; Protocol PRN Reason: Hypoglycemia Protocol Stop: 12/17/18 00:44 Glucose (Glucose 40%) 15 - 30 gm PO UD PRN; Protocol PRN Reason: Hypoglycemia Protocol Stop: 12/17/18 00:44 Glucose (Dex4 Glucose) 4 - 8 tabs PO UD PRN; Protocol PRN Reason: Hypoglycemia Protocol Stop: 12/17/18 00:44 Hydralazine HCl (Hydralazine Hcl) 10 mg IV Q6H PRN PRN Reason: SBP>180 Stop: 12/19/18 10:44 Last Admin: 11/19/18 15:49 Dose: 10 mg Documented by: Hydrochlorothiazide (Hctz) 12.5 mg PO QAM [facility] Stop: 12/19/18 08:59 Last Admin: 11/21/18 07:48 Dose: 12.5 mg Documented by: Acetaminophen (Ofirmev) 1,000 mg in 100 mls @ 400 mls/hr IV Q8 [facility] Stop: 12/17/18 21:59 Last Infusion: 11/21/18 06:08 Dose: Infused Documented by: Insulin Aspart (Novolog Flexpen) 0 units SC ACHS [facility] Stop: 12/17/18 00:59 Last Admin: 11/21/18 12:04 Dose: 3 units Documented by: Insulin Glargine (Lantus Solostar Pen) 5 units SC HS [facility] Stop: 12/17/18 20:59 Last Admin: 11/20/18 22:02 Dose: 5 units Documented by: Levothyroxine Sodium (Synthroid) 75 mcg PO DAILYBB [facility] Stop: 12/17/18 06:29 Last Admin: 11/21/18 05:43 Dose: 75 mcg Documented by: Miscellaneous (Carbohydrates For Hypoglycemia) 15 - 30 gm PO UD PRN PRN Reason: Hypoglycemia Treatment Stop: 12/17/18 00:44 Morphine Sulfate (Morphine Sulfate) 1 mg IV Q4H PRN PRN Reason: Pain Stop: 12/01/18 00:44 Last Admin: 11/20/18 02:58 Dose: 1 mg Documented by: Multivitamins/Minerals (Caltrate Plus) 1 tab PO DAILY [facility] Stop: 12/17/18 08:59 Last Admin: 11/17/18 07:58 Dose: 1 tab Documented by: Psyllium Hydrophilic Mucilloid (Metamucil) 1 pkt PO QAM [facility] Stop: 12/20/18 18:59 Last Admin: 11/21/18 07:48 Dose: 1 pkt Documented by: Sotalol HCl (Betapace) 40 mg PO BID [facility] Stop: 12/18/18 05:29 Last Admin: 11/21/18 07:47 Dose: 40 mg Documented by: Tramadol HCl (Ultram) 50 mg PO Q4H PRN PRN Reason: Pain Stop: 12/17/18 00:44 Last Admin: 11/21/18 07:47 Dose: 50 mg Documented by: Vitamin D (Vitamin D3) 1,000 units PO DAILY [facility] Stop: 12/17/18 08:59 Last Admin: 11/17/18 07:59 Dose: 1,000 units Documented by: Warfarin Sodium (Coumadin) 2 mg PO MoWeFr@1600 [facility] Stop: 12/18/18 15:59 Last Admin: 11/20/18 15:54 Dose: 2 mg Documented by: Warfarin Sodium (Coumadin) 4 mg PO [id number]@1600 [facility] Stop: 12/19/18 15:59 Last Admin: 11/19/18 15:44 Dose: Not Given Documented by: (1) Fracture, ribs Encounter type: initial encounter Fracture type: closed Laterality: unspecified laterality Rib fracture type: multiple ribs Qualified Code(s): S22.49XA - Multiple fractures of ribs, unspecified side, initial encounter for closed fracture (2) Dementia Dementia behavioral disturbance: without behavioral disturbance Dementia type: unspecified type Qualified Code(s): F03.90 - Unspecified dementia without behavioral disturbance
--- NOTE | 2018-11-22 07:34 | Discharge Summary ---
Date of Service November 22, 2018 Admission HPI Per Admitting Provider History obtained from patient, family, and records. History limited from patient secondary to dementia. Medical history significant for dementia, chronic diastolic heart failure, CAD status post stent, PAF on Coumadin, hypertension, hyperlipidemia, DM 2 on oral medications, hypothyroidism, breast cancer right status post surgery (radiation and hormonal therapy declined.) Recent confinement May 2014 for rapid A. fib. Patient moved to [facility] personal-alf 5 weeks ago (after being at [facility] for 5 years for patient to have greater mobility as per family). Today patient fell down landing on her left side as she was was going up a short flight of stairs. Patient complained of pleuritic left chest pain. Denies hemoptysis, shortness of breath symptoms. No head trauma. Medical History as above Oral cephalosporin course prescribed by PCP for UTI few days ago. Outpatient urine cultures showed E. coli, strep viridans. 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 Admission Exam Per Admitting Provider Physical Exam: GENERAL: unomfortable, slightly hard of hearing, no respiratory distress SKIN: Normal color, warm HEENT: [place] palpebral conjunctivae, no ptosis, dry buccal mucosa NECK : Supple, no tenderness CHEST : Decreased breath sounds, anterior chest wall tenderness left HEART : RRR, systolic murmur ABDOMEN: Some distention, nontender EXTREMITIES : Minimal LE swelling, no LE tenderness, no other conspicuous deformities noted NEUROLOGIC : Coherent but demented, no facial asymmetry, hard of hearing, gait and stance not assessed Principal Diagnosis Hypertensive urgency-improved, metabolic encephalopathy-improved to baseline, fracture left pelvic, UTI, dementia Discharge Exam Constitutional no acute distress Eyes PERRL, conjunctivae normal, anicteric sclerae ENMT external ear and nose normal, oropharynx normal Neck trachea midline, no thyromegaly Respiratory normal respiratory effort; no respiratory distress Auscultation: lungs clear to auscultation bilaterally Cardiovascular Rate/Rhythm: regular rate and regular rhythm Heart Sounds: no murmur Gastrointestinal (Abdomen) Inspection/Auscultation: abdomen normal to inspection and normal bowel sounds Percussion/Palpation: abdomen soft Lymphatic no cervical or axillary lymphadenopathy Discharge Data Allergies Allergy/AdvReac Type Severity Reaction Status Date / Time bisacodyl Allergy Severe difficulty Verified 11/16/18 19:44 breathing, gi trazodone Allergy Severe anaphylaxis Verified 11/16/18 19:44 FREDI Inhibitors Allergy Unknown Unknown Verified 11/16/18 19:44 lisinopril Allergy Unknown Unknown Verified 11/16/18 19:44 nefazodone Allergy Unknown Unknown Verified 11/16/18 19:44 ranolazine Allergy Unknown unknown Verified 11/16/18 19:44 Sulfa (Sulfonamide Allergy Unknown stiff Verified 11/16/18 19:44 Antibiotics) neck/headache yellow dye Allergy Unknown unknown Verified 11/16/18 19:44 Consultations 11/16/18 22:00 ED Decision to Admit Stat 11/17/18 00:45 Consult Case Management - Discharge Planning Routine Ordered Studies 11/16/18 19:41 CT abd pelvis IV con only Stat CT chest w con Stat Hospital Course (1) HTN (hypertension): Uncontrolled high blood pressure likely secondary to pain/agitation. Cont scheduled Tylenol punctuated by Tramadol PRN breakthrough pain. Cont HCTZ, started this admission. Cont PRN hydralazine. We will add amlodipine for better blood pressure control Blood pressure seems to be improving (2) Fracture, ribs: Acute comminuted mildly displaced rib fractures on the left third rib with additional subtle nondisplaced fractures of the anterolateral left fourth and fifth ribs. Pain is controlled Cont scheduled Tylenol. Pt very sensitive to morphine, so would only give 1mg at a time. PT/OT as tolerated.-Doing much better with physical therapy She will be transferred to [facility] this afternoon (3) E. coli UTI: Possible etiology of her mechanical fall at home. Cefdinir was started on 11/15 for 10-day course. Continue twice daily dosing. (4) Dementia: Underlying dementia and it clear risk for delirium in the hospital with an evidence of infection and severe uncontrolled pain. Continue to reorient, early ambulation recommended and good day night cycles. No acute delirium (5) Encephalopathy: Multifactorial including morphine use, uncontrolled pain in setting of dementia with high risk of delirium. She has an active infection. May have an element of hypertensive encephalopathy so aggressively trying to control pain and BP as above She is back to her baseline without any acute confusion. (6) DVT prophylaxis: Warfarin Full code Disposition-she will be discharged to [facility] this afternoon Total Time Total Time Spent Total Time Spent (In Minutes): 35 minutes Total Time Includes: Examination of the Patient, Discharge Planning, Medication Reconciliation and Communication With Other Providers Discharge Plan Discharge Items Patient Disposition: Transfer Nursing Home Fac Reason For Visit: HTN URGENCY, RIB FX Discharge Diagnosis: Hypertensive urgency-improved, metabolic encephalopathy- improved to baseline, fracture left pelvic, UTI, dementia Condition: Fair Discharge Goals: Decrease discomfort, Improve function and Increase independence Activity: Resume your previous activity Non-emergency contact: Primary Care Provider Call non-emergency contact if: you have any medication questions and your symptoms worsen Follow-up/Referrals: Blanca Strauss DO [Primary Care Provider] - 11/29/18 10:45 am Diet: Carb Consistent or DM2 and Heart Healthy Addtl Provider Instructions: Please take precaution to avoid falls. Prescriptions: New sotalol 80 mg Tablet 40 mg PO BID 30 Days Qty: 30 RF: 0 amlodipine [Norvasc] 5 mg Tablet 5 mg PO QAM 30 Days Qty: 30 RF: 0 tramadol 50 mg Tablet 50 mg PO Q4H PRN (Reason: pain) 3 Days Qty: 12 RF: 0 cefdinir 300 mg Capsule 300 mg PO BID 3 Days Qty: 6 RF: 0 Continued acetaminophen 325 mg Tablet 325 mg PO Q6H PRN (Reason: Pain) RF: 0 donepezil 5 mg tablet 5 mg PO DAILY RF: 0 polyethylene glycol 3350 17 gram Powder In Packet 17 g PO DIRECTED RF: 0 atorvastatin 10 mg Tablet 10 mg PO DAILY RF: 0 warfarin 4 mg Tablet 4 mg PO DIRECTED RF: 0 glimepiride 1 mg tablet 1 mg PO DAILY RF: 0 levothyroxine 75 mcg tablet 75 mcg PO DAILY RF: 0 cyanocobalamin (vitamin B-12) [Vitamin B-12] 500 mcg Tablet 500 mcg PO DAILY RF: 0 warfarin 2 mg Tablet 2 mg PO DIRECTED RF: 0 cholecalciferol (vitamin D3) [Vitamin D3] 1,000 unit Capsule 1,000 unit PO DAILY RF: 0 Systane Ultra 0.4-0.3 % Drops 2 drp OPHTHALMIC (EYE) BID PRN (Reason: Dry Eye(S)) RF: 0 melatonin 1 mg Tablet 1 mg PO HS PRN (Reason: Insomnia) RF: 0 Calcium 600 + D(3) 600 mg calcium- 200 unit Capsule 1 cap PO DAILY RF: 0 Discontinued sotalol 80 mg Tablet 80 mg PO DAILY RF: 0 cefdinir 300 mg capsule 300 mg PO Q12H RF: 0 Stand-Alone Forms: [facility], [facility] Discharge Orders: Discharge Order (Routine); Ordered 11/21/18 Ordered By: Maida Pace Skilled Items Patient informed of condition?: Yes DNR: No Discharge Level of Care: Skilled Communicable Disease: No Discharge Prognosis: Stable Admission Data Admit Date/Time: 11/17/18 16:24 Attending Provider: Maida Pace Admit Provider: Saulo Brown Primary Care Provider: Blanca Strauss Other Providers: Saulo Brown ; Priti Murphy Service: Telemetry Medical Other Interventions: Discharge Summary Assessment (RN) Last Done: 11/21/18 13:09 DC Date/Time DO NOT enter until pt leaves facility: 11/21/18 14:48
--- NOTE | 2018-11-22 12:19 | Coding Query ---
CODING QUERY To promote full compliance with coding requirements relating to patient care, provider participation is requested in all cases of calendering supervisor uncertainty. Please assist us with the question(s) below: Coding Question(s): 1. The Discharge Summary documents, under the Principal Diagnosis heading, fracture left pelvic, however this is not documented elsewhere in the record. There is documentation in the record of left rib fractures. Please specify below, in your clinical opinion. ( +) left rib fractures ( ) left rib fractures and left pelvic fracture ( ) Other: Please specify 2. The Discharge Summary documents, under the Principal Diagnosis heading, Metabolic Encephalopathy. Please specify below, in your clinical opinion, the most likely etiology of the Metabolic Encephalopathy. ( ) Metabolic Encephalopathy most likely due to the UTI active infection ( ) most likely Metabolic Encephalopathy, Toxic from Morphine Use ( +) Metabolic Encephalopathy most likely due to other: Please Specify_multifactorial including UTI, narcotics use, pain and hypertension ( ) Metabolic Encephalopathy with unknown likely etiology Physician's Response(s): Thank you Ceci Mathur Principal Diagnosis: "that condition established after study, to be chiefly responsible for occasioning the admission of the patient to the hospital for care." Co-Existing Principal Diagnosis: "when two or more diagnoses equally meet the criteria for principal diagnosis as determined by the circumstances of admission, diagnostic work up, and/or therapy provided, and the Alphabetic Index, Tabular List, or another coding guideline does not provide sequencing direction, any one of the diagnoses may be sequenced first." "When the physician has documented what appears to be a current diagnosis in the body of the record, but has not included the diagnosis in the final diagnostic statement, the physician should be asked whether the diagnosis should be added." (Source Coding [facility] 2 QTR90. p3-4) DOMINIK
== END 2018-11-21 14:48 | DRG 183 ==
LOC: ED 19:21 → 2W 19:21 → SUATTDRO 23:24 → 2W 23:59 → SUATTDRO 11-17 16:24